=== PATIENT | female | born 1965 | race Caucasian/White ===

== ENCOUNTER 2020-07-18 14:53 | Observation (INO) ==
[2020-07-18] MEDS ORDERED: SODIUM CHLORIDE 0.9% 1000ML 1,000 ML IV SCH (15:45)
--- NOTE | 2020-07-18 15:48 | Emergency Department Note ---
Impression & Plan Left sided numbness, Hypertension, Slurred speech, Acute CVA (cerebrovascular accident) ED Provider Note NAME: PRANAY MARTINEZ AGE: 54 SEX: F : 1965 ARRIVES VIA: Walk-In INFORMANT: [Patient][] ED PROVIDER(S): [Dalton Lassiter MD] The patient was seen by me as she entered the room at 1538. CHIEF COMPLAINT: Stroke symptoms HISTORY OF PRESENT ILLNESS: The patient is a 54-year-old female who states that at 11 AM, 4 hours and 38 minutes ago, she noticed numbness to her left arm, left face and left leg. Mostly the left arm. She noticed her speech was thicker and slightly slurred. Her noticed that when she would speak, she would talk out of only the right side of her mouth. She has not really noticed weakness to the left arm or leg. She has not had a headache, nausea, chest pain or shortness of breath. She has no previous history of stroke. She is on no blood thinners. She has been in baseline health. REVIEW OF SYSTEMS: See HPI for pertinent positives and negatives. A total of ten systems were reviewed and were otherwise negative. PMHx/PSHx: See Below SOCIAL HISTORY: See Below. PHYSICAL EXAM: GENERAL: Patient is in no acute distress. HEENT: No acute trauma, normocephalic atraumatic, mucous membranes moist, no nasal congestion, no scleral icterus. NECK: No stridor, no adenopathy, no meningismus, trachea is midline. LUNGS: Clear to auscultation bilaterally, no wheeze, no rhonchi, breath sounds equal. HEART: Without murmurs gallops or rubs, regular rate and rhythm. ABDOMEN: Soft, nontender, bowel sounds positive, no hernias, no peritonitis. EXTREMITIES: No cyanosis or edema, full range of motion of all the joints without pain or difficulty, no signs for acute trauma. NEUROLOGIC: Oriented x 3. She has a slight speech slur. There is no facial droop however, when she speaks, the left side of her mouth does not move as much as the right. She has pronator drift on the left and a slight left arm drift. No cerebellar dysfunction with the upper extremities. She has some difficulty holding the left leg off the bed and there is cerebellar dysfunction with the left leg. SKIN: No rash, no jaundice, no diaphoresis. DIFFERENTIAL DIAGNOSIS: Infection, dehydration, metabolic abnormality, hypo/hyperglycemia, electrolyte disturbance, anemia, hypoxia, cardiac sources, intracerebral event, toxicologic issues, stroke, TIA, as well as other pathologies. EMERGENCY DEPARTMENT COURSE/PROCEDURES: ECG: Indication was stroke. ECG shows a normal sinus rhythm with a rate of 93. There is some nonspecific ST change. There is no ST elevation, no PVCs. The QTc is 457. Continuous Cardiac Monitoring: An order was placed for continuous cardiac monitoring. The monitor shows a rate of 93 with normal sinus rhythm. Critical Care Note: I have personally spent 53 minutes of critical care time in the direct management of this patient. This includes bedside care, interpretation of diagnostic studies, and testing, discussion with consultants, patient, and family members, and other required patient management activities. This 53 minutes is in excess of all separately billable procedures. MEDICAL DECISION MAKING: There is no leukocytosis or concerning anemia. There is a normal platelet count. No coagulopathy. No significant electrolyte abnormality or kidney fa ilure. No worrisome liver enzyme elevation. ECG shows a sinus rhythm, no acute ischemia. Cardiac enzyme testing x1 is not consistent with acute cardiac injury. Urinalysis does not show infection. Covid testing returned negative. Chest from did not show pneumonia or CHF. Brain CT showed no acute bleed or mass-effect. CT angio of the head and neck showed a stenosis to the right internal carotid artery, there was no occlusion to any of the arteries. Brain MRI does show a subacute stroke on the right. The patient was aggressively managed given her presentation. She was made a stroke alert. Unfortunately, she was not a candidate for TPA as she was out of the window for this intervention. Patient was given IV labetalol. A second dose of IV labetalol was given. She was given IV hydralazine. These medications were given because of her higher blood pressure. She was given rectal aspirin. The patient presents with left-sided weakness. She had some deficits on exam consistent with CVA. She was found to have a CVA by MRI. Hospitalization is warranted. She was seen by [place] neurology via telestroke. Patient is not in need of emergent transfer. Hospitalization for her stroke was recommended. I spoke to the patient and her family, I talked to case management. The on-call hospitalist was consulted. Past Med/Surg History Medical History Hypertension Social History Smoking Status: Current every day smoker Hx Alcohol Use: No Hx Substance Use: No Preferred Language: Kittitian Communication Ability: Effective Bilingual Loan Processor Required: No Beliefs That Will Affect Care: None Current Living Situation: Spouse Other Information That Helps Us Care for You: No Feels Safe at Home: Yes Safety Concerns: Feels Safe At This Time Assistive Devices: None Allergies Allergies Allergy/AdvReac Type Severity Reaction Status Date / Time No Known Allergies Allergy Unverified 07/18/20 16:33 Home Meds Home Medications Medication Instructions Recorded Confirmed No Known Home Medications 07/18/20 07/18/20 Results & Data (ED) Vital Signs Vital Signs - 24 hr 07/18/20 15:32 07/18/20 15:45 07/18/20 15:59 Temperature 37.2 C Temperature Source Temporal Artery Scan Pulse Rate 107 H 93 H Pulse Rate from SpO2 Sensor 93 H Respiratory Rate 20 16 Respiratory Effort / Characteristics Non-Labored Spontaneous Respiratory Depth Normal Respiratory Pattern Regular Blood Pressure 216/108 H 223/110 H Blood Pressure Mean 144 147 Pulse Oximetry 96 96 Oxygen Delivery Method Room Air Room Air Sepsis Recent Fever Within 48 Hours No Sepsis New/Unexplained Change in Mental Status N/A Sepsis Action Taken by Nursing No Action Required 07/18/20 16:01 07/18/20 16:02 07/18/20 16:06 Temperature Temperature Source Pulse Rate 94 H 96 H 98 H Pulse Rate from SpO2 Sensor 93 H 96 H 97 H Respiratory Rate 14 19 Respiratory Effort / Characteristics Respiratory Depth Respiratory Pattern Blood Pressure 221/122 H 221/118 H Blood Pressure Mean 155 152 Pulse Oximetry 97 98 96 Oxygen Delivery Method Sepsis Recent Fever Within 48 Hours Sepsis New/Unexplained Change in Mental Status Sepsis Action Taken by Nursing 07/18/20 16:07 07/18/20 16:10 07/18/20 16:18 Temperature Temperature Source Pulse Rate 95 H 85 82 Pulse Rate from SpO2 Sensor 95 H 85 81 Respiratory Rate 22 18 20 Respiratory Effort / Characteristics Respiratory Depth Respiratory Pattern Blood Pressure 214/117 H 224/119 H 213/113 H Blood Pressure Mean 149 154 146 Pulse Oximetry 95 97 95 Oxygen Delivery Method Sepsis Recent Fever Within 48 Hours Sepsis New/Unexplained Change in Mental Status Sepsis Action Taken by Nursing 07/18/20 16:19 07/18/20 16:20 07/18/20 16:30 Temperature Temperature Source Pulse Rate 88 81 87 Pulse Rate from SpO2 Sensor 87 80 87 Respiratory Rate 20 15 16 Respiratory Effort / Characteristics Respiratory Depth Respiratory Pattern Blood Pressure 198/114 H Blood Pressure Mean 142 Pulse Oximetry 98 97 98 Oxygen Delivery Method Sepsis Recent Fever Within 48 Hours Sepsis New/Unexplained Change in Mental Status Sepsis Action Taken by Nursing 07/18/20 16:40 07/18/20 16:41 Temperature Temperature Source Pulse Rate 82 83 Pulse Rate from SpO2 Sensor 81 83 Respiratory Rate 19 19 Respiratory Effort / Characteristics Respiratory Depth Respiratory Pattern Blood Pressure 206/120 H Blood Pressure Mean 148 Pulse Oximetry 98 96 Oxygen Delivery Method Sepsis Recent Fever Within 48 Hours Sepsis New/Unexplained Change in Mental Status Sepsis Action Taken by [facility] Medications Current Medication List: was personally reviewed by me Laboratory Data Attestation: I reviewed the patient's lab results. Result diagrams: 07/18/20 15:49 07/18/20 15:49 Lab Results 07/18/20 07/18/20 07/18/20 Range/Units 15:47 15:49 15:49 WBC 8.86 (4.8-10.8) K/uL RBC 4.98 (4.2-5.4) M/uL Hgb 15.7 (12.0-16.0) g/dL Hct 44.3 (37-47) % MCV 89.0 (80-100) fL MCH 31.5 (25-34) pg MCHC 35.4 (32-36) g/dL RDW Std Deviation 41.1 (36.4-46.3) fL RDW Coeff of Xin 12.8 (11.5-14.5) % Plt Count 188 (130-400) K/uL MPV 11.4 H (7.4-10.4) fL Immature Gran % (Auto) 0.3 % Neut % (Auto) 79.7 % Lymph % (Auto) 15.5 % [place] % (Auto) 4.0 % Eos % (Auto) 0.2 % Baso % (Auto) 0.3 % Neut # (Auto) 7.06 H (1.4-6.5) K/uL Lymph # (Auto) 1.37 (1.2-3.4) K/uL [place] # (Auto) 0.35 (0.11-0.59) K/uL Eos # (Auto) 0.02 (0-0.5) K/uL Baso # (Auto) 0.03 (0-0.2) K/uL Immature Gran # (Auto) 0.03 H (0.00-0.02) K/uL PT (9.0-12.0) Seconds INR (0.9-1.1) APTT (21.0-31.0) Seconds PTT Ratio Sodium (136-145) mmol/L Potassium (3.5-5.1) mmol/L Chloride (98-107) mmol/L Carbon Dioxide (21-32) mmol/L Anion Gap (3-11) BUN (7-18) mg/dl Creatinine (0.6-1.2) mg/dl Est Cr Clr Drug Dosing ml/min Est GFR ( Amer) ml/min Est GFR (Non-Af Amer) ml/min BUN/Creatinine Ratio (10-20) Glucose (70-99) mg/dl POC Glucose 134 H (70-99) mg/dl Calcium (8.5-10.1) mg/dl Magnesium (1.8-2.4) mg/dl Total Bilirubin (0.2-1) mg/dl AST (15-37) U/L ALT (12-78) U/L Alkaline Phosphatase (45-117) U/L Troponin I (0-0.045) ng/ml Total Protein (6.4-8.2) gm/dl Albumin (3.4-5.0) gm/dl Globulin (2.5-4.0) gm/dl Albumin/Globulin Ratio (0.9-2) Specimen Hemolysis Urine Color Urine Appearance (Clear) Urine pH (4.5-7.5) Ur Specific [place] (1.000-1.030) Urine Protein (Negative) Urine Glucose (UA) (Negative) Urine Ketones (Negative) Urine Blood (Negative) Urine Nitrite (Negative) Urine Bilirubin (Negative) Urine Urobilinogen (Negative) Ur Leukocyte Esterase (Negative) Urine WBC (Auto) (0-5) /hpf Urine RBC (Auto) (0-4) /hpf U Hyaline Cast (Auto) (0-5) /lpf U Epithel Cells (Auto) (0-5) /lpf Urine Bacteria (Auto) (Negative) COVID-19 Eval Order SARS-CoV-2 (PCR) (Negative) Blood Type A Positive Antibody Screen NEGATIVE 07/18/20 07/18/20 07/18/20 Range/Units 15:49 15:49 16:31 WBC (4.8-10.8) K/uL RBC (4.2-5.4) M/uL Hgb (12.0-16.0) g/dL Hct (37-47) % MCV (80-100) fL MCH (25-34) pg MCHC (32-36) g/dL RDW Std Deviation (36.4-46.3) fL RDW Coeff of Xin (11.5-14.5) % Plt Count (130-400) K/uL MPV (7.4-10.4) fL Immature Gran % (Auto) % Neut % (Auto) % Lymph % (Auto) % [place] % (Auto) % Eos % (Auto) % Baso % (Auto) % Neut # (Auto) (1.4-6.5) K/uL Lymph # (Auto) (1.2-3.4) K/uL [place] # (Auto) (0.11-0.59) K/uL Eos # (Auto) (0-0.5) K/uL Baso # (Auto) (0-0.2) K/uL Immature Gran # (Auto) (0.00-0.02) K/uL PT 9.8 (9.0-12.0) Seconds INR 1.0 (0.9-1.1) APTT 23.1 (21.0-31.0) Seconds PTT Ratio 0.9 Sodium 140 (136-145) mmol/L Potassium 4.0 (3.5-5.1) mmol/L Chloride 109 H (98-107) mmol/L Carbon Dioxide 24 (21-32) mmol/L Anion Gap 7.0 (3-11) BUN 9 (7-18) mg/dl Creatinine 0.74 (0.6-1.2) mg/dl Est Cr Clr Drug Dosing 104.4 ml/min Est GFR ( Amer) 107.2 ml/min Est GFR (Non-Af Amer) 92.5 ml/min BUN/Creatinine Ratio 12.2 (10-20) Glucose 131 H (70-99) mg/dl POC Glucose (70-99) mg/dl Calcium 9.6 (8.5-10.1) mg/dl Magnesium 2.3 (1.8-2.4) mg/dl Total Bilirubin 0.3 (0.2-1) mg/dl AST 21 (15-37) U/L ALT 33 (12-78) U/L Alkaline Phosphatase 105 (45-117) U/L Troponin I < 0.015 (0-0.045) ng/ml Total Protein 9.0 H (6.4-8.2) gm/dl Albumin 4.3 (3.4-5.0) gm/dl Globulin 4.7 H (2.5-4.0) gm/dl Albumin/Globulin Ratio 0.9 (0.9-2) Specimen Hemolysis Urine Color Yellow Urine Appearance Clear (Clear) Urine pH 7.5 (4.5-7.5) Ur Specific [place] 1.033 H (1.000-1.030) Urine Protein Negative (Negative) Urine Glucose (UA) Negative (Negative) Urine Ketones Negative (Negative) Urine Blood 1+ H (Negative) Urine Nitrite Negative (Negative) Urine Bilirubin Negative (Negative) Urine Urobilinogen Negative (Negative) Ur Leukocyte Esterase Negative (Negative) Urine WBC (Auto) 1-5 (0-5) /hpf Urine RBC (Auto) 0-4 (0-4) /hpf U Hyaline Cast (Auto) 0 (0-5) /lpf U Epithel Cells (Auto) 10-20 H (0-5) /lpf Urine Bacteria (Auto) Negative (Negative) COVID-19 Eval Order SARS-CoV-2 (PCR) (Negative) Blood Type Antibody Screen 07/18/20 07/18/20 Range/Units 16:45 16:45 WBC (4.8-10.8) K/uL RBC (4.2-5.4) M/uL Hgb (12.0-16.0) g/dL Hct (37-47) % MCV (80-100) fL MCH (25-34) pg MCHC (32-36) g/dL RDW Std Deviation (36.4-46.3) fL RDW Coeff of Xin (11.5-14.5) % Plt Count (130-400) K/uL MPV (7.4-10.4) fL Immature Gran % (Auto) % Neut % (Auto) % Lymph % (Auto) % [place] % (Auto) % Eos % (Auto) % Baso % (Auto) % Neut # (Auto) (1.4-6.5) K/uL Lymph # (Auto) (1.2-3.4) K/uL [place] # (Auto) (0.11-0.59) K/uL Eos # (Auto) (0-0.5) K/uL Baso # (Auto) (0-0.2) K/uL Immature Gran # (Auto) (0.00-0.02) K/uL PT (9.0-12.0) Seconds INR (0.9-1.1) APTT (21.0-31.0) Seconds PTT Ratio Sodium (136-145) mmol/L Potassium (3.5-5.1) mmol/L Chloride (98-107) mmol/L Carbon Dioxide (21-32) mmol/L Anion Gap (3-11) BUN (7-18) mg/dl Creatinine (0.6-1.2) mg/dl Est Cr Clr Drug Dosing ml/min Est GFR ( Amer) ml/min Est GFR (Non-Af Amer) ml/min BUN/Creatinine Ratio (10-20) Glucose (70-99) mg/dl POC Glucose (70-99) mg/dl Calcium (8.5-10.1) mg/dl Magnesium (1.8-2.4) mg/dl Total Bilirubin (0.2-1) mg/dl AST (15-37) U/L ALT (12-78) U/L Alkaline Phosphatase (45-117) U/L Troponin I (0-0.045) ng/ml Total Protein (6.4-8.2) gm/dl Albumin (3.4-5.0) gm/dl Globulin (2.5-4.0) gm/dl Albumin/Globulin Ratio (0.9-2) Specimen Hemolysis Urine Color Urine Appearance (Clear) Urine pH (4.5-7.5) Ur Specific [place] (1.000-1.030) Urine Protein (Negative) Urine Glucose (UA) (Negative) Urine Ketones (Negative) Urine Blood (Negative) Urine Nitrite (Negative) Urine Bilirubin (Negative) Urine Urobilinogen (Negative) Ur Leukocyte Esterase (Negative) Urine WBC (Auto) (0-5) /hpf Urine RBC (Auto) (0-4) /hpf U Hyaline Cast (Auto) (0-5) /lpf U Epithel Cells (Auto) (0-5) /lpf Urine Bacteria (Auto) (Negative) COVID-19 Eval Order Covid19 at [facility] SARS-CoV-2 (PCR) NEGATIVE (Negative) Blood Type Antibody Screen Administered Medications Clopidogrel Bisulfate (Clopidogrel Bisulfate 75 Mg Tab) 75 mg PO QAM TIMO Stop: 08/17/20 19:09 Last Admin: 07/18/20 22:15 Dose: 75 mg Documented by: [id number] Sodium Chloride (Nss 1000ml) 1,000 mls @ 100 mls/hr IV .Q10H TIMO Stop: 08/17/20 19:09 Last Admin: 07/18/20 22:15 Dose: 100 mls/hr Documented by: [id number] Nicotine (Nicotine 21 Mg/24 Hr Tdsy) 21 mg TD QAM TIMO Stop: 08/17/20 19:09 Last Admin: 07/18/20 22:15 Dose: 21 mg Documented by: [id number] Discontinued Medications Aspirin (Aspirin 600 Mg Supp) 600 mg TN NOW STA Stop: 07/18/20 16:26 Last Admin: 07/18/20 16:45 Dose: 600 mg Documented by: [id number] Hydralazine HCl (Hydralazine Hcl 20 Mg/Ml Vial) 10 mg IV NOW STA Stop: 07/18/20 16:53 Last Admin: 07/18/20 17:45 Dose: 10 mg Documented by: [id number] Sodium Chloride (Nss 1000ml) 1,000 mls @ 50 mls/hr IV .Q20H TIMO Stop: 08/17/20 15:44 Last Admin: 07/18/20 16:25 Dose: 50 mls/hr Documented by: [id number] Ioversol (Optiray 350 500ml) 120 ml IV ONCE ONE Stop: 07/18/20 15:54 Last Admin: 07/18/20 15:53 Dose: 120 ml Documented by: [id number] Labetalol HCl (Labetalol Hcl Iv 5 Mg/Ml 20ml) 10 mg IV NOW STA Stop: 07/18/20 16:03 Last Admin: 07/18/20 16:05 Dose: 10 mg Documented by: [id number] Cosigned by: [id number] Labetalol HCl (Labetalol Hcl Iv 5 Mg/Ml 20ml) 10 mg IV NOW STA Stop: 07/18/20 16:22 Last Admin: 07/18/20 16:27 Dose: 10 mg Documented by: [id number] Cosigned by: [id number] Imaging Data Radiologist's Impression: Head CT 07/18/20 15:43 CT head/brain wo con CLINICAL HISTORY: Acute stroke like symptoms COMPARISON STUDY: No previous studies for comparison. TECHNIQUE: Axial CT of the brain is performed from the vertex to the skull base. IV contrast was not administered for this examination. A dose lowering technique was utilized adhering to the principles of ALARA. CT DOSE: FINDINGS: No intra or extra-axial mass lesions are visualized. There is no CT evidence of acute cortical infarction. There is no evidence of midline shift. There is no acute hemorrhage. No calvarial fractures are visualized. There are moderate white matter hypodensities likely on a small vessel basis. This could represent a demyelinating process, or age advanced small vessel ischemic disease. There is no evidence of pathologic ventricular dilatation. There is no evidence of acute sinusitis IMPRESSION: 1. No acute intracranial findings 2. Moderate nonspecific white matter disease. This could represent age advanced small vessel ischemic disease, or a demyelinating process. Clinical correlation advocated. ACT 112: Negative or not required by law. Electronically signed by: Randy Farias M.D. 07/18/2020 3:59 PM Head CTA 07/18/20 15:43 CT ANGIOGRAM OF THE BRAIN CLINICAL HISTORY: Strokelike symptoms. Left upper extremity tingling and numbne ss. COMPARISON STUDY: Unenhanced CT of the brain performed concurrently on 07/18/2020. TECHNIQUE: Following the IV administration of 120 cc of Optiray 350, CT angiogram of the brain was performed from the skull base to the vertex. Images are reviewed in the axial, sagittal, and coronal planes. 3-D MIPS images are created and assessed. IV contrast was administered without complication. A dose lowering technique was utilized adhering to the principles of ALARA. CT DOSE: 1113.38 mGy.cm FINDINGS: Brain parenchyma: There are foci of patchy low-attenuation within the s ubcortical and periventricular white matter. There is no hemorrhage, mass effect, or evidence of acute territorial ischemia by CT criteria. There is no evidence of enhancing mass lesion on the angiogram phase images. No extra-axial fluid collection is seen. Khalil-white matter differentiation is preserved. Ventricles, sulci, and cisterns: Normal in configuration. CT angiogram of the brain: There is atherosclerotic calcification of the cavernous carotid arteries. The internal carotid arteries are widely patent, as are the anterior and middle cerebral arteries. The vertebrobasilar system and posterior cerebral arteries are widely patent. The left vertebral artery is dominant. There is no aneurysm, high-grade stenosis, or focal vessel cutoff identified throughout the intracranial circulation. Dural sinuses: Clear as visualized. Orbits: The bony orbits are intact. The orbital contents are normal as visualized. Sinuses and mastoids: The visualized paranasal sinuses are clear. The mastoid air cells are well pneumatized. Dentition and soft tissues: There are large periapical lucencies seen involving several maxillary teeth. A 2.6 x 1.6 cm benign-appearing cystic structure is present within the right maxilla on image #8. A 10 mm right peritonsillar fluid collection is partially imaged. Calvarium: Unremarkable. IMPRESSION: 1. There is evidence of hemorrhage, mass effect, or acute territorial ischemia by CT criteria noting angiographic phase technique. 2. Unremarkable CT angiogram of the brain. 3. There is nonspecific subcortical and periventricular white matter abnormality. This could represent age advanced microangiopathic change or could also be seen in the setting of a demyelinating process such as multiple sclerosis. Clinical correlation will be essential. 4. There is a 10 mm right peritonsillar fluid collection. This is of indeterminate significance, and a small tonsillar abscess is not excluded. Clinical correlation will be essential. 5. There are numerous periapical lucencies identified involving the maxillary teeth. Additionally, there is a large benign-appearing cystic structure within the right maxilla. Nonemergent follow-up with dentistry is recommended. ACT 112: Positive. There are findings on this exam that require communication between the performing entity and the patient following Patient Test Result Information Act ([place] Act 112) guidelines. Electronically signed by: Dalton Moura M.D. 07/18/2020 4:12 PM Neck CTA 07/18/20 15:43 CT angio neck with con CLINICAL HISTORY: stroke LEFT ARM NUMBNESS AND TINGLING COMPARISON STUDY: No previous studies for comparison. TECHNIQUE: CT angiography was performed from the aortic arch to the skull base. MIP imaging was performed. The patient was scanned in a dynamic helical fashion during intravenous administration of 120 cc of Optiray. A dose lowering technique was utilized adhering to the principles of ALARA. CT DOSE: Technique: CT angiogram of the carotid and vertebral arteries was obtained using intravenous contrast and 3-D reconstruction. NASCET criteria was utilized. Findings: There is upper lobe pulmonary emphysema. There is a multinodular thyroid goiter. There are extensive atheromatous changes within the right carotid bulb. There is an 80% diameter stenosis of the proximal right internal carotid artery. There is no evidence of carotid dissection. Atheromatous changes are present within the cavernous carotids without evidence of a hemodynamically significant stenosis. Moderate atheromatous changes are present within the left carotid bulb. This results in a nonhemodynamically significant 25% left internal carotid artery origin stenosis. There is no evidence of hemodynamically significant vertebral stenosis. There is no evidence of vertebral dissection. IMPRESSION: 1. 80% diameter stenosis in the proximal right internal carotid artery. 2. No evidence of hemodynamically significant left internal carotid artery stenosis. 3. No evidence of vertebral artery stenosis or dissection. 4. Multinodular thyroid goiter 5. Indeterminate 1 cm right tonsillar hypodensity. Clinical correlation and follow-up recommended. ACT 112: Negative or not required by law. Electronically signed by: Randy Farias M.D. 07/18/2020 4:16 PM Chest X-Ray 07/18/20 15:45 XR chest 1V portable CLINICAL HISTORY: Stroke Like Symptoms COMPARISON STUDY: No previous studies for comparison. FINDINGS: The heart is borderline enlarged. There is mild interstitial prominence without evidence of overt failure. There is no focal pulmonary consolidation. There are no pleural effusions.[There is paratracheal soft tissue prominence, consistent with the patient's known thyroid goiter. IMPRESSION: 1. Mild vascular/interstitial prominence without evidence of overt failure 2. No evidence of focal pulmonary consolidation 3. Paratracheal soft tissue prominence, consistent with the patient's known thyroid goiter. ACT 112: Negative or not required by law. Electronically signed by: Randy Farias M.D. 07/18/2020 6:13 PM Brain MRI 07/18/20 16:26 MRI OF THE BRAIN WITHOUT CONTRAST CLINICAL HISTORY: Left-sided numbness. Possible acute stroke. COMPARISON STUDY: Noncontrast head CT dated 07/18/2020 FINDINGS: Sagittal T1, axial diffusion, proton density and T2 weighted axial, coronal FLAIR, and axial T1-weighted images were acquired. No intra or extra-axial mass lesions are visualized There is a 9 mm focus of restricted water diffusion within the deep white matter of the right parietal lobe indicative of an acute/subacute infarct. There is no evidence of ventricular dilatation. Proton density T2-weighted and FLAIR images reveal moderately extensive foci of increased T2 signal within the white matter, likely on an age advanced small vessel basis. There is an old presumed lacunar infarct within the left garrison. T here are deep white matter chronic right frontal infarcts. There are no abnormal flow voids. There is a right maxillary sinus inflammatory polyp/retention cyst. IMPRESSION: 1. 9 mm focus of restricted water diffusion within the deep white matter of the right parietal lobe indicative of acute/subacute infarct 2. Moderately extensive white matter disease, likely secondary to age advanced small vessel ischemic disease. 3. Presumed old lacunar infarcts within the left garrison and deep white matter of the right frontal lobe.. ACT 112: Negative or not required by law. Electronically signed by: Randy Farias M.D. 07/18/2020 5:30 PM Discharge Plan Visit Data Chief Complaint: Neuro Symptoms/Deficit Stated Complaint: LFT SIDE FEELS NUMB,VOICE IS HOARSE ED Provider: Dalton Lassiter Discharge Problem: Left sided numbness, Hypertension, Slurred speech, Acute CVA (cerebrovascular accident) Patient Disposition: Admitted As Inpatient Condition: Fair Discharge Instructions Interventions: ED Discharge Assessment Last Done: 07/18/20 18:36 Discharge Problem: Hypertension Qualifiers: Hypertension type: unspecified Qualified Code(s): I10 - Essential (primary) hypertension
[2020-07-18] MEDS ORDERED: OPTIRAY 350 500ml IV ONE (15:53)
[2020-07-18 15:57] LABS: Basophils # (auto) 0.03 K/uL (0-0.2); Basophils % (auto) 0.3 %; Eosinophils # (auto) 0.02 K/uL (0-0.5); Eosinophils % (auto) 0.2 %; Hematocrit (blood only) 44.3 % (37-47); Hemoglobin 15.7 g/dL (12.0-16.0); Immature Granulocytes # (auto) 0.03 K/uL (0.00-0.02); Immature Granulocytes % (auto) 0.3 %; Lymphocytes # (auto) 1.37 K/uL (1.2-3.4); Lymphocytes % (auto) 15.5 %; Mean Corpuscular Hemoglobin 31.5 pg (25-34); Mean Corpuscular Hgb Conc 35.4 g/dL (32-36); Mean Platelet Volume 11.4 fL (7.4-10.4); Monocytes # (auto) 0.35 K/uL (0.11-0.59); Neutrophils # (auto) 7.06 K/uL (1.4-6.5); Neutrophils % (auto) 79.7 %; Platelet Count 188 K/uL (130-400); RDW Coefficient of Variation 12.8 % (11.5-14.5); RDW Standard Deviation 41.1 fL (36.4-46.3); Red Blood Count 4.98 M/uL (4.2-5.4); White Blood Count 8.86 K/uL (4.8-10.8)
--- NOTE | 2020-07-18 16:01 | CT Scan Report ---
CT head/brain wo con CLINICAL HISTORY: Acute stroke like symptoms COMPARISON STUDY: No previous studies for comparison. TECHNIQUE: Axial CT of the brain is performed from the vertex to the skull base. IV contrast was not administered for this examination. A dose lowering technique was utilized adhering to the principles of ALARA. CT DOSE: FINDINGS: No intra or extra-axial mass lesions are visualized. There is no CT evidence of acute cortical infarc tion. There is no evidence of midline shift. There is no acute hemorrhage. No calvarial fractures ar e visualized. There are moderate white matter hypodensities likely on a small vessel basis. This could represent a demyelinating process, or age advanced small vessel ischemic disease. There is no evidence of pathologic ventricular dilatation. There is no evidence of acute sinusitis IMPRESSION: 1. No acute intracranial findings 2. Moderate nonspecific white matter disease. This could represent age advanced small vessel ischemic disease, or a demyelinating process. Clinical correlation advocated. ACT 112: Negative or not required by law. Electronically signed by: Randy Farias M.D. 07/18/2020 3:59 PM
[2020-07-18] MEDS ORDERED: LABETALOL HCL IV 5 MG/ML 20ML IV STA ×2 (16:02→16:21)
--- NOTE | 2020-07-18 16:13 | CT Scan Report ---
CT ANGIOGRAM OF THE BRAIN CLINICAL HISTORY: Strokelike symptoms. Left upper extremity tingling and numbness. COMPARISON STUDY: Unenhanced CT of the brain performed concurrently on 07/18/2020. TECHNIQUE: Following the IV administration of 120 cc of Optiray 350, CT angiogram of the brain was pe rformed from the skull base to the vertex. Images are reviewed in the axial, sagittal, and coronal pl anes. 3-D MIPS images are created and assessed. IV contrast was administered without complication. A dose lowering technique was utilized adhering to the principles of ALARA. CT DOSE: 1113.38 mGy.cm FINDINGS: Brain parenchyma: There are foci of patchy low-attenuation within the subcortical and periventricular white matter. There is no hemorrhage, mass effect, or evidence of acute territorial ischemia by CT c riteria. There is no evidence of enhancing mass lesion on the angiogram phase images. No extra-axial fluid collection is seen. Khalil-white matter differentiation is preserved. Ventricles, sulci, and cisterns: Normal in configuration. CT angiogram of the brain: There is atherosclerotic calcification of the cavernous carotid arteries. The internal carotid arteries are widely patent, as are the anterior and middle cerebral arteries. Th e vertebrobasilar system and posterior cerebral arteries are widely patent. The left vertebral artery is dominant. There is no aneurysm, high-grade stenosis, or focal vessel cutoff identified throughout the intracranial circulation. Dural sinuses: Clear as visualized. Orbits: The bony orbits are intact. The orbital contents are normal as visualized. Sinuses and mastoids: The visualized paranasal sinuses are clear. The mastoid air cells are well pneu matized. Dentition and soft tissues: There are large periapical lucencies seen involving several maxillary sami th. A 2.6 x 1.6 cm benign-appearing cystic structure is present within the right maxilla on image #8. A 10 mm right peritonsillar fluid collection is partially imaged. Calvarium: Unremarkable. IMPRESSION: 1. There is evidence of hemorrhage, mass effect, or acute territorial ischemia by CT criteria noting angiographic phase technique. 2. Unremarkable CT angiogram of the brain. 3. There is nonspecific subcortical and periventricular white matter abnormality. This could represen t age advanced microangiopathic change or could also be seen in the setting of a demyelinating proces s such as multiple sclerosis. Clinical correlation will be essential. 4. There is a 10 mm right peritonsillar fluid collection. This is of indeterminate significance, and a small tonsillar abscess is not excluded. Clinical correlation will be essential. 5. There are numerous periapical lucencies identified involving the maxillary teeth. Additionally, th ere is a large benign-appearing cystic structure within the right maxilla. Nonemergent follow-up with dentistry is recommended. ACT 112: Positive. There are findings on this exam that require communication between the performing entity and the patient following Patient Test Result Information Act ([place] Act 112) guidelines. Electronically signed by: Dalton Moura M.D. 07/18/2020 4:12 PM
--- NOTE | 2020-07-18 16:17 | CT Scan Report ---
CT angio neck with con CLINICAL HISTORY: stroke LEFT ARM NUMBNESS AND TINGLING COMPARISON STUDY: No previous studies for comparison. TECHNIQUE: CT angiography was performed from the aortic arch to the skull base. MIP imaging was perfo rmed. The patient was scanned in a dynamic helical fashion during intravenous administration of 120 c c of Optiray. A dose lowering technique was utilized adhering to the principles of ALARA. CT DOSE: Technique: CT angiogram of the carotid and vertebral arteries was obtained using intravenous contrast and 3-D reconstruction. NASCET criteria was utilized. Findings: There is upper lobe pulmonary emphysema. There is a multinodular thyroid goiter. There are extensive atheromatous changes within the right carotid bulb. There is an 80% diameter sten osis of the proximal right internal carotid artery. There is no evidence of carotid dissection. Ather omatous changes are present within the cavernous carotids without evidence of a hemodynamically signi ficant stenosis. Moderate atheromatous changes are present within the left carotid bulb. This results in a nonhemodyna mically significant 25% left internal carotid artery origin stenosis. There is no evidence of hemodynamically significant vertebral stenosis. There is no evidence of verte bral dissection. IMPRESSION: 1. 80% diameter stenosis in the proximal right internal carotid artery. 2. No evidence of hemodynamically significant left internal carotid artery stenosis. 3. No evidence of vertebral artery stenosis or dissection. 4. Multinodular thyroid goiter 5. Indeterminate 1 cm right tonsillar hypodensity. Clinical correlation and follow-up recommended. ACT 112: Negative or not required by law. Electronically signed by: Randy Farias M.D. 07/18/2020 4:16 PM
[2020-07-18 16:19] LABS: Partial Thromboplastin Ratio 0.9; Partial Thromboplastin Time 23.1 Seconds (21.0-31.0); Prothrombin Time 9.8 Seconds (9.0-12.0)
[2020-07-18] MEDS ORDERED: ASPIRIN 600 MG SUPP PR STA (16:25)
--- NOTE | 2020-07-18 16:26 | Electrocardiogram Report ---
Test Reason : Blood Pressure : / mmHG Vent. Rate : 093 BPM Atrial Rate : 093 BPM P-R Int : 164 ms QRS Dur : 096 ms QT Int : 368 ms P-R-T Axes : 060 067 021 degrees QTc Int : 457 ms Normal sinus rhythm Possible Left atrial enlargement Borderline ECG No previous ECGs available Confirmed by Chuckie Izquierdo ([id number]) on 07/18/2020 4:26:12 PM Referred By: Confirmed By:Chuckie Izquierdo
[2020-07-18 16:31] LABS: Alanine Aminotransferase 33 U/L (12-78); Albumin Globulin Ratio 0.9 (0.9-2); Albumin Level 4.3 gm/dl (3.4-5.0); Alkaline Phosphatase 105 U/L (45-117); Aspartate Aminotransferase 21 U/L (15-37); BUN Creatinine Ratio 12.2 (10-20); Bilirubin,Total 0.3 mg/dl (0.2-1); Blood Urea Nitrogen 9 mg/dl (7-18); Calcium 9.6 mg/dl (8.5-10.1); Carbon Dioxide 24 mmol/L (21-32); Chloride 109 mmol/L (98-107); Creatinine Clr Calc Pharmacy 104.4 ml/min; Est GFR (African American) 107.2 ml/min; Est GFR (Non-African American) 92.5 ml/min; Globulin 4.7 gm/dl (2.5-4.0); Glucose 131 mg/dl (70-99); Magnesium 2.3 mg/dl (1.8-2.4); Sodium 140 mmol/L (136-145); Troponin I < 0.015 ng/ml (0-0.045)
[2020-07-18 16:47] LABS: Appearance Urine Clear (Clear); Bacteria Urine Automated Negative (Negative); Bilirubin Urine Negative (Negative); Blood Urine 1+ (Negative); Cast Urine Automated 0 /lpf (0-5); Color Urine Yellow; Glucose Urine UA Negative (Negative); Ketones Urine Negative (Negative); Leukocyte Esterase Urine Negative (Negative); Nitrite Urine Negative (Negative); Protein Urine Negative (Negative); RBC Urine Automated 0-4 /hpf (0-4); Specific Gravity Urine 1.033 (1.000-1.030); Urobilinogen Urine Negative (Negative); pH Urine 7.5 (4.5-7.5)
[2020-07-18] MEDS ORDERED: hydrALAZINE HCL 20 MG/ML VIAL IV STA (16:52)
--- NOTE | 2020-07-18 17:31 | Magnetic Resonance Report ---
MRI OF THE BRAIN WITHOUT CONTRAST CLINICAL HISTORY: Left-sided numbness. Possible acute stroke. COMPARISON STUDY: Noncontrast head CT dated 07/18/2020 FINDINGS: Sagittal T1, axial diffusion, proton density and T2 weighted axial, coronal FLAIR, and axial T1-weigh manjit images were acquired. No intra or extra-axial mass lesions are visualized There is a 9 mm focus of restricted water diffusion within the deep white matter of the right parieta l lobe indicative of an acute/subacute infarct. There is no evidence of ventricular dilatation. Proton density T2-weighted and FLAIR images reveal moderately extensive foci of increased T2 signal w ithin the white matter, likely on an age advanced small vessel basis. There is an old presumed lacuna r infarct within the left garrison. There are deep white matter chronic right frontal infarcts. There are no abnormal flow voids. There is a right maxillary sinus inflammatory polyp/retention cyst. IMPRESSION: 1. 9 mm focus of restricted water diffusion within the deep white matter of the right parietal lobe i ndicative of acute/subacute infarct 2. Moderately extensive white matter disease, likely secondary to age advanced small vessel ischemic disease. 3. Presumed old lacunar infarcts within the left garrison and deep white matter of the right frontal lobe .. ACT 112: Negative or not required by law. Electronically signed by: Randy Farias M.D. 07/18/2020 5:30 PM
--- NOTE | 2020-07-18 18:05 | History & Physical Report ---
Date of Service July 18, 2020 Assessment & Plan (1) CVA (cerebral vascular accident): Patient with a new right parietal CVA, evidence of older left frontal and garrison infarcts Out of window on presentation for TPA Placed in monitored observation Patient was given rectal aspirin, can continue along with Plavix 75 mg daily Start of 40 mg of atorvastatin, check fasting lipids check Hgba1c Check 2D echo Continue neurochecks as ordered PT/OT Bedside speech eval for diet release, will ask speech to evaluate in a.m. Ask neurology to evaluate for further recommendations (2) Hypertension: Permissive hypertension for the next 12 hours Amlodipine 5 mg p.o. daily ordered for the morning (3) Carotid stenosis: Aspirin, Plavix as noted above statin as noted above Consider vascular consultation for possible surgical intervention (4) Tobacco abuse: Briefly counseled on smoking cessation Patient requesting nicotine patch Will follow up with primary care provider after discharge to discuss Chantix History of Present Illness Chief Complaint: L sided numbness Primary Care Provider: NO PCP This is a 54-year-old female denies any past medical history that presents today complaining of left-sided numbness and weakness. Patient is pleasant good historian. Patient states that she was doing fine so she woke up this morning. She noted some numbness in her left upper extremity radiating down to her hand. There is a little bit of weakness as well. She is left-hand dominant. This morning progressed, she noted some similar symptoms in her upper leg down to her knee with some accompanied weakness. She denies any difficulty with walking. However, she became much more concerned when she started to have some dysarthria. She denies any expressive aphasia. She called her significant other who also noted the slurred speech and brought her to the emergency room for further evaluation. In the ER, she was found to be extremely hypertensive with a blood pressure over 200. She presented to the hospital more than 4 and half hours after symptoms had started and was therefore not a candidate for TPA. Stroke work-up did reveal a left parietal CVA along with some older lacunar and garrison infarcts. Patient tells me that her symptoms are almost completely resolved with just some residual numbness in her left arm. She denies any issues such as headache, fever, recent illness, chest pain, palpitations, abdominal pain, or lower extremity edema. Of note, she has not seen a physician in many years. She smokes about a pack a day since her teenage years. She is a nondrinker. Allergies Allergy/AdvReac Type Severity Reaction Status Date / Time No Known Allergies Allergy Unverified 07/18/20 16:33 Home Medications Medication Instructions Recorded Confirmed Type No Known Home Medications 07/18/20 07/18/20 History Past Med/Surg History Social History Smoking Status: Current every day smoker Feels Safe at Home: Yes Review of Systems Constitutional: no fever, no chills, no weakness and no anorexia Eyes: no blind spots, no photophobia, not seeing flashes and no worsening vision Ear, Nose, Mouth, Throat: as per Subjective / HPI Respiratory: + cough; no chest congestion, no dyspnea, no dyspnea on exertion, no pain on inspiration, no pain with cough, no stopping breathing during sleep and no sputum production Cardiovascular: no chest pain, no radiating jaw, neck or arm pain, no dyspnea, no dyspnea on exertion, no orthopnea, no palpitations and no lightheadedness Gastrointestinal: no abdominal pain, no nausea, no vomiting, no constipation and no diarrhea/loose stools Genitourinary: no dysuria, no difficulty urinating, no urinary hesitancy and no urinary urgency Musculoskeletal: + muscle weakness; no back pain, no neck pain, no radicular pain, no joint pain and no deformity Integumentary: no rash and no lesions Neurologic: + tingling, + numbness, + paresthesia and + abnormal speech; no unsteadiness, no generalized weakness, no lack of coordination, no tremor(s), no abnormal movements, no seizure-like activity, no headache(s) and no confusion Psychiatric: as per Subjective / HPI Endocrine: as per Subjective / HPI Physical Exam Constitutional: cooperative and comfortable; no acute distress Neck: trachea midline, no thyromegaly Respiratory: normal respiratory effort, lungs clear to auscultation Cardiovascular: Rate/Rhythm: regular rate and regular rhythm Heart Sounds: no murmur Vessels: + carotid bruit (? faint on R side); no JVD Extremities: + edema Gastrointestinal (Abdomen): normal bowel sounds, soft, nontender, no hepatosplenomegaly Musculoskeletal: no cyanosis or clubbing, extremities motor strength 5/5 Neurologic: patellar DTR's 2+ bilat, sensation intact and PERRL, EOMI, accommodation nl, no face palsy, no dysarthria Psychiatric: A+Ox3, euthymic affect Results & Data Results & Data ([facility]) Vital Signs (Past 12 Hours) Vital Signs Temp Pulse Resp BP Pulse Ox 07/18/20 16:41 83 19 206/120 H 96 07/18/20 16:40 82 19 98 07/18/20 16:30 87 16 98 07/18/20 16:20 81 15 198/114 H 97 07/18/20 16:19 88 20 98 07/18/20 16:18 82 20 213/113 H 95 07/18/20 16:10 85 18 224/119 H 97 07/18/20 16:07 95 H 22 214/117 H 95 07/18/20 16:06 98 H 221/118 H 96 07/18/20 16:02 96 H 19 221/122 H 98 07/18/20 16:01 94 H 14 97 07/18/20 15:59 93 H 16 223/110 H 96 07/18/20 15:32 37.2 C 107 H 20 216/108 H 96 Diagnostic Findings MRI OF THE BRAIN WITHOUT CONTRAST CLINICAL HISTORY: Left-sided numbness. Possible acute stroke. COMPARISON STUDY: Noncontrast head CT dated 07/18/2020 FINDINGS: Sagittal T1, axial diffusion, proton density and T2 weighted axial, coronal FLAIR, and axial T1-weighted images were acquired. No intra or extra-axial mass lesions are visualized There is a 9 mm focus of restricted water diffusion within the deep white matter of the right parietal lobe indicative of an acute/subacute infarct. There is no evidence of ventricular dilatation. Proton density T2-weighted and FLAIR images reveal moderately extensive foci of increased T2 signal within the white matter, likely on an age advanced small vessel basis. There is an old presumed lacunar infarct within the left garrison. There are deep white matter chronic right frontal infarcts. There are no abnormal flow voids. There is a right maxillary sinus inflammatory polyp/retention cyst. IMPRESSION: 1. 9 mm focus of restricted water diffusion within the deep white matter of the right parietal lobe indicative of acute/subacute infarct 2. Moderately extensive white matter disease, likely secondary to age advanced small vessel ischemic disease. 3. Presumed old lacunar infarcts within the left garrison and deep white matter of the right frontal lobe.. PG Care Time/CCT Total # of Minutes Spent Total Time Spent with Patient: Total time spent is greater than 50% in coordination of care (as documented) at patient's floor/unit and/or counseling patient: Coding Level of Care Code 93262 OBS Care - Level 3 Diagnoses CVA (cerebral vascular accident) I63.9 Hypertension I10 Carotid stenosis I65.29 Tobacco abuse Z72.0
--- NOTE | 2020-07-18 18:14 | XRay Report ---
XR chest 1V portable CLINICAL HISTORY: Stroke Like Symptoms COMPARISON STUDY: No previous studies for comparison. FINDINGS: The heart is borderline enlarged. There is mild interstitial prominence without evidence of overt failure. There is no focal pulmonary consolidation. There are no pleural effusions.[There is p aratracheal soft tissue prominence, consistent with the patient's known thyroid goiter. IMPRESSION: 1. Mild vascular/interstitial prominence without evidence of overt failure 2. No evidence of focal pulmonary consolidation 3. Paratracheal soft tissue prominence, consistent with the patient's known thyroid goiter. ACT 112: Negative or not required by law. Electronically signed by: Randy Farias M.D. 07/18/2020 6:13 PM
[2020-07-18] MEDS ORDERED: ACETAMINOPHEN 325 MG TAB PO PRN (19:10)
[2020-07-18] MEDS ORDERED: PHARMACIST DISCHARGE MED REC CONSULT PRN (19:10)
[2020-07-18] MEDS ORDERED: ONDANSETRON INJ 2 MG/ML 2 ML VIAL IV PRN (19:10)
[2020-07-18] MEDS: NICOTINE 21 MG/24 HR TDSY TD SCH (22:15)
[2020-07-18] MEDS: SODIUM CHLORIDE 0.9% 1000ML 1,000 ML IV SCH (22:15)
[2020-07-18] MEDS: CLOPIDOGREL BISULFATE 75 MG TAB PO SCH (22:15)
[2020-07-19 06:44] LABS: Basophils # (auto) 0.03 K/uL (0-0.2); Basophils % (auto) 0.4 %; Eosinophils # (auto) 0.08 K/uL (0-0.5); Eosinophils % (auto) 1.1 %; Hematocrit (blood only) 40.3 % (37-47); Hemoglobin 13.8 g/dL (12.0-16.0); Immature Granulocytes # (auto) 0.02 K/uL (0.00-0.02); Immature Granulocytes % (auto) 0.3 %; Lymphocytes # (auto) 1.83 K/uL (1.2-3.4); Lymphocytes % (auto) 25.5 %; Mean Corpuscular Hemoglobin 30.5 pg (25-34); Mean Corpuscular Hgb Conc 34.2 g/dL (32-36); Mean Platelet Volume 11.5 fL (7.4-10.4); Monocytes # (auto) 0.46 K/uL (0.11-0.59); Monocytes % (auto) 6.4 %; Neutrophils # (auto) 4.76 K/uL (1.4-6.5); Neutrophils % (auto) 66.3 %; Platelet Count 172 K/uL (130-400); RDW Coefficient of Variation 13.3 % (11.5-14.5); RDW Standard Deviation 43.3 fL (36.4-46.3); Red Blood Count 4.53 M/uL (4.2-5.4); White Blood Count 7.18 K/uL (4.8-10.8)
[2020-07-19 07:13] LABS: BUN Creatinine Ratio 19.8 (10-20); Calcium 9.4 mg/dl (8.5-10.1); Creatinine Clr Calc Pharmacy 120.6 ml/min; Est GFR (African American) 118.1 ml/min; Est GFR (Non-African American) 101.9 ml/min; Magnesium 2.1 mg/dl (1.8-2.4); Potassium 3.5 mmol/L (3.5-5.1)
[2020-07-19 08:34] LABS: Estimated Average Glucose 126 mg/dl
[2020-07-19] MEDS ORDERED: amLODIPine BESYLATE 5 MG TAB PO SCH (09:00)
[2020-07-19] MEDS ORDERED: hydrALAZINE HCL 20 MG/ML VIAL IV PRN ×2 (09:00→20:46)
[2020-07-19] MEDS: SODIUM CHLORIDE 0.9% 1000ML 1,000 ML IV SCH (09:07)
[2020-07-19] MEDS: NICOTINE 21 MG/24 HR TDSY TD SCH (09:11)
[2020-07-19] MEDS: ASPIRIN 81 MG ECTAB PO SCH (10:31)
[2020-07-19] MEDS: ATORVASTATIN 40 MG TAB PO SCH (10:31)
[2020-07-19] MEDS: CLOPIDOGREL BISULFATE 75 MG TAB PO SCH (10:32)
--- NOTE | 2020-07-19 10:41 | Hospitalist Progress Note ---
Date of Service July 19, 2020 Assessment & Plan (1) CVA (cerebral vascular accident): Patient with a new right parietal CVA, evidence of older left frontal and garrison infarcts Out of window on presentation for TPA Cleared by speech and was started on aspirin and clopidogrel p.o. Continue 40 mg atorvastatin p.o. daily, LDL above goal 144 HbA1c 6.0. Dietary changes discussed with patient. TTE pending Continue neurochecks as ordered PT/OT Appreciate neurology consult. Continue stay due to her elevated blood pressure, carotid artery stenosis and multiple risk factors for further stroke. (2) Hypertension: Will discontinue amlodipine. Treat systolic blood pressure > 180 with IV hydralazine. We will continue to low blood pressure with slowly decreasing over the next 24 to 48 hours (3) Carotid stenosis: Aspirin, Plavix as noted above statin as noted above Consult vascular surgery (4) Tobacco abuse: Discussed smoking cessation. Nicotine patch currently working well. Admission and Anticipated Discharge Date Admission Date: July 18, 2020 Subjective Patient reports slurred speech resolved. She is still having some difficulty with her left hand. No numbness on the left side. She denies any problems eating. No vision changes, hearing changes. [id number] Review of Systems Review of Systems: All systems reviewed & are unremarkable except as noted in HPI & below Physical Exam Constitutional: WD/WN, vitals as above cooperative and comfortable; no acute distress Eyes: PERRL, conjunctivae normal, anicteric sclerae EOM intact bilaterally (No diplopia) Neck: trachea midline, no thyromegaly Respiratory: normal respiratory effort, lungs clear to auscultation Cardiovascular: Rate/Rhythm: regular rate and regular rhythm Heart Sounds: no murmur Vessels: no JVD Extremities: + pedal edema (Trace ankles bilaterally) Gastrointestinal (Abdomen): normal bowel sounds, soft, nontender, no hepatosplenomegaly Neurologic: moves all extremities, + focal motor deficit (Mild reduced tug master strength on the left side) and awake; not confused Speech / Cognition: normal speech Motor/Sensory: no tremor and no pronator drift Cranial Nerves: PERRL, EOM intact bilaterally, tongue midline, normal hearing, able to rotate head bilaterally, able to elevate shoulders bilaterally, no nystagmus and symmetric palate elevation; + abnormal facial strength (Mild drooping of left side of mouth) Gait: no ataxic gait Coordination: + abnormal [id number] test (Mild difficulty on left) Psychiatric: A+Ox3, euthymic affect Results & Data Results & Data ([facility]) Vital Signs (Past 12 Hours) Vital Signs Temp Pulse Pulse Resp BP BP Pulse Ox 07/19/20 09:51 96 H 18 173/88 H 92 07/19/20 08:46 82 07/19/20 08:14 36.6 C 87 19 213/99 H 94 07/19/20 04:07 37.3 C 78 20 160/81 H 96 07/19/20 00:00 76 07/18/20 23:14 37.2 C 82 20 152/86 H 95 PG Care Time/CCT Total # of Minutes Spent Total Time Spent with Patient: Total time spent is greater than 50% in coordination of care (as documented) at patient's floor/unit and/or counseling patient: Coding Level of Care Code 23545 Subseq Obs Care Lvl 3 Diagnoses CVA (cerebral vascular accident) I63.9 Hypertension I10 Carotid stenosis I65.29 Tobacco abuse Z72.0
[2020-07-19 11:17] LABS: Thyroid Stimulating Hormone 0.293 uIu/ml (0.300-4.500)
[2020-07-19 11:30] LABS: T4 Free Thyroxine 1.03 ng/dl (0.8-1.6)
--- NOTE | 2020-07-19 12:56 | Consultation ---
Date of Consultation July 19, 2020 Assessment & Plan (1) Carotid stenosis: Pt with acute/subacute R hemispheric CVA on MRI and approx 80% stenosis of R ICA. Presented with L arm/hand/thigh numbness and mild dysarthria. Her sx are significantly improved, but not completely resolved. Will have Dr Dutta review CTA neck to determine whether pt would benefit from R CEA. Agree with initiation of plavix/ASA in meantime. Patient was seen, examined, and chart reviewed. Agree with exam and treatment plan of the Vascular PA. History of Present Illness Reason for Consultation: R ICA stenosis with CVA Attending Physician: Hi Zepeda MD History of Present Illness 54 yo f without significant medical hx, admitted d/t L arm and leg numbness and mild dysarthria that began upon waking yesterday, seen in consultation today for R ICA stenosis noted on CTA neck. Pt states no prior similar sx, but noted L hand numbness/tingling upon waking yesterday, which then extended more proximally to her forearm and upper arm as the morning went on. Also noted L thigh/knee numbness. When she began to feel that her speech was not normal, she called her and came to [facility]. Pt states her sx are improved today, but not completely resolved. Pt was hypertensive on arrival. Denies SHAH, amaurosis, chest pain, SOB, facial droop, dysphagia, abd pain, N/V, palpitations, rest pain, claudication, other complaints. MRI brain demonstrates R parietal CVA. CTA neck demonstrates approx 80% stenosis of R ICA. Allergies Allergy/AdvReac Type Severity Reaction Status Date / Time No Known Allergies Allergy Unverified 07/18/20 16:33 Home Medications Medication Instructions Recorded Confirmed Type No Known Home Medications 07/18/20 07/18/20 History amlodipine [Norvasc] 2.5 mg PO QAM #30 tab 07/20/20 Rx aspirin 81 mg PO QAM #30 tab 07/20/20 Rx atorvastatin 40 mg PO QAM #30 tab 07/20/20 Rx clopidogrel 75 mg PO DAILY 20 Days #20 tab 07/20/20 Rx nicotine [Nicoderm CQ] 21 mg TRANSDERMAL QAM #28 ea 07/20/20 Rx Patient History Medical History Hypertension Social History Smoking Status: Current every day smoker Hx Alcohol Use: No Hx Substance Use: No Preferred Language: Nigerian Communication Ability: Effective 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: No Beliefs That Will Affect Care: None marital status: Life Partner Current Living Situation: Spouse How many Children do You have: 3 Feels Safe at Home: Yes Assistive Devices: None Review of Systems Review of Systems: All systems reviewed & are unremarkable except as noted in HPI & below Physical Exam Constitutional: WD/WN, vitals as above + obese, healthy appearing, cooperative and comfortable; not in distress Eyes: PERRL, conjunctivae normal, anicteric sclerae ENMT: Ears: no hearing impairment Neck: trachea midline Respiratory: normal respiratory effort, lungs clear to auscultation Auscultation: + diminished lung sounds Cardiovascular: RRR, no murmur, no edema Gastrointestinal (Abdomen): normal bowel sounds, soft, nontender, no hepatosplenomegaly Musculoskeletal: no cyanosis or clubbing, extremities motor strength 5/5 Skin: no rashes, warm and dry Neurologic: moves all extremities and awake; no focal motor deficits, not confused and not obtunded Speech / Cognition: normal speech and normal cognition Psychiatric: A+Ox3, euthymic affect Results & Data ([facility]) Vital Signs (Past 12 Hours) Vital Signs Temp Pulse Pulse Resp BP BP Pulse Ox 07/19/20 11:25 36.7 C 86 19 171/83 H 96 07/19/20 09:51 96 H 18 173/88 H 92 07/19/20 08:46 82 07/19/20 08:14 36.6 C 87 19 213/99 H 94 07/19/20 04:07 37.3 C 78 20 160/81 H 96
--- NOTE | 2020-07-19 14:05 | XCELERA ---
[id number]
--- NOTE | 2020-07-19 14:15 | Neurology Consultation ---
Date of Consultation July 19, 2020 Assessment & Plan (1) Left sided numbness: (2) Carotid stenosis: (3) Tobacco abuse: (4) Stroke: Rocio Hawley is a 54 yo woman w/ PMH of HTN, tobacco abuse and carotid stenosis who p/t [facility] with acute onset of left sided numbness and dysarthria. Symptom localization: right centrum semiovale Stroke mechanism: lacunar vs vessel to vessel embolus, less likely hypercoagulable or cardioembolic Stroke WorkUp: - CT head: shows no hemorrhage, questionable hypodensity in the left parietal lobe - CTA head/neck: shows moderate to severe stenosis of the right ICA just proximal to the bifurcation, hypoplastic right vertebral artery, mild diffuse extra and intracranial atherosclerosis - MRI brain: shows a subacute infarct in the right centrum semiovale, chronic infarct in the right frontal lobe and left parietal lobe with moderate to severe SVID noted - TTE: EF 60-65%, borderline LVH, no interatrial shunt, no noted - Telemetry: pending - A1c: 6.0 - FLP: 144 - UDS: pending - Troponin, TSH: negative, low at 0.293 - Hypercoagulable labs (ordered): Cardiolipin Ab, Protein C and S, ATIII, FV Leiden, PT gene mutation, APC resistance Stroke Management: - Acute treatment: ASA - Continuous cardiac monitoring, recommend 30 day event monitor as outpatient if telemetry here unrevealing - Vitals, Neurochecks, NIHSS per unit routine - BP parameters: SBP CAP 180, start anti-hypertensives for goal normotension over next 3-4 days - Complete ischemic stroke workup with UDS, hypercoagulable panel - Consult speech, PT, OT for supportive management - Will peer counselor concerning stroke education, smoking cessation, healthy diet, physical activity, weight loss - Follow up with PCP for assistance with outpatient goals (BP <130/80, LDL <70, A1c <7) - Follow up in neurology clinic in 6-8 weeks with [facility] Secondary Stroke Prevention: - Antiplatelet: ASA 81mg po daily/plavix 75mg daily x21 days, then aspirin 81mg daily - Anticoagulation: Not indicated at this time - Statin: Atorvastatin 80mg daily HTN: - BP parameters, as above - Start home medications with goal of lowering BP to normotension over next 3-4 days FEN/GI: - Diet: Beside dysphagia to clear patient for PO meds/Cardiac HH diet - Monitor lytes and replete PRN Glucose Control: - Sliding scale insulin and accuchecks per primary team to avoid hyperglycemia Thank you for this interesting consult. Plan of care was discussed with primary team. Please call with any questions. 60 minutes was spent [id number] with patient, with more than 50% spent on counseling/coordination of care/charting. History of Present Illness Attending Physician: Hi Zepeda MD History of Present Illness Rocio Hawley is a 54 yo woman w/ PMH of HTN, tobacco abuse and carotid stenosis who p/t [facility] with acute onset of left sided numbness and dysarthria. 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 In the ED, she was afebrile, BP 216/190, heart rate 107, respiratory 20, satting 96% room air. Labs notable for WBC 8.6, elevated with 7, platelets 188, which is within normal, creatinine 0.74, glucose 131, INR 1, calcium/magnesium within normal, LFTs within normal, troponin negative, UA no infection, Covid negative. CT head shows no hemorrhage, questionable hypodensity in the left parietal lobe. CTA head and neck shows moderate to severe stenosis of the right ICA just proximal to the bifurcation, hypoplastic right vertebral artery, mild diffuse extra and intracranial atherosclerosis. MRI brain shows a subacute infarct in the right centrum semiovale, chronic infarct in the right frontal lobe and left parietal lobe with moderate to severe SVID noted. On examination, she reports that she was in her normal state of health until 7:30am on 07/18/20 when she woke up, went back to sleep and woke up again and noticed LUE numbness and dysarthria. Denies any weakness, aphasia or vision changes at time. Symptoms have slowly improved and just affect her 4th/5th digits today. Endorses smoking 1 ppd x 40 yrs, denies alcohol/illicits. Not on any medications at home. Stroke Workflow: Where patient arrived from: home CT ASPECT: 9 Time IV tpa is given: NA tPA bolus: NA tPA dose: NA If tpa not given, why not: Outside of time window, Uncontrolled hypertension >185 systolic or >110 diastolic If delay >60min after hospital arrival, why: NA If no IA therapy, why not: No LVO on CTA Patient Features: Admission NIHSS: 1 Admission Modified Karlie Scale: 0 Time patient last seen well: 11am on 07/18/20 Wake up stroke: No Intubation status: Not intubated Stroke Risk Factors: Hypertension: Y Hyperlipidemia: N Atrial Fib: N Tobacco: Y Diabetes: N Taking NOAC or warfarin: N Allergies Allergy/AdvReac Type Severity Reaction Status Date / Time No Known Allergies Allergy Unverified 07/18/20 16:33 Home Medications Medication Instructions Recorded Confirmed Type No Known Home Medications 07/18/20 07/18/20 History Patient History Medical History Hypertension Social History Smoking Status: Current every day smoker Hx Alcohol Use: No Hx Substance Use: No Preferred Language: [place] Communication Ability: Effective 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 Exam (Neuro) Physical Exam: General Exam: GEN: NAD, sitting in chair HEENT: No conjunctival injection, no rhinorrhea. CV: RRR on monitor, no significant edema. PULM: Nonlabored respirations on room air. Neuro Exam: MS: Awake and Alert. Oriented to person, place, and date. Speech fluent and appropriate without dysarthria or paraphasic errors. Language intact including naming, comprehension, repetition. Cognition and memory grossly intact. Attention intact. No neglect. CN: Visual laws full. No extinction to double simultaneous stimuli. Unable to visualize fundi on fundoscopic exam. PERRLA OU. EOMI without nystagmus. Facial sensation intact to LT. Facial muscles full and symmetric. Hearing intact to conversation. Shoulder shrug normal. Tongue midline. MOTOR: Normal bulk and tone. + pronator drift in LUE. BUE strength 5/5 at deltoids, biceps, triceps, wrist flexors and extensors, and finger flexors bilaterally. BLE strength 5/5 at iliopsoas, hamstrings, quadriceps, tibialis anterior, and gastrocnemius bilaterally. REFLEXES: 2+ at biceps, triceps, brachioradialis, trace patella, and absent Achilles bilaterally. Flexor plantar responses bilaterally. SENSORY: Intact to LT/vibration throughout, no extinction to double simultaneous stimuli. COORDINATION: No dysmetria or ataxia on [id number] bilaterally. Normal Evie bilaterally. GAIT: Deferred due to physical status. NIH STROKE SCALE 1A. Level of Consciousness (0-3) = 0 1B. LOC Questions (0-2) = 0 1C. LOC Commands (0-2) = 0 2. Best Horizontal Gaze (0-2) = 0 3. Visual Laws (0-3) = 0 4. Facial Palsy (0-3) = 0 5. Motor Arm Right (0-4) = 0 Left (0-4) = 0 6. Motor Leg Right (0-4) = 0 Left (0-4) = 0 7. Limb Ataxia (0-2) = 0 8. Sensory (0-2) = 0 9. Best Language (0-3) = 0 10. Dysarthria (0-2) = 0 11. Extinction and Inattention (0-2) = 0 NIHSS TOTAL = 0 Results & Data ([facility]) Vital Signs (Past 12 Hours) Vital Signs Temp Pulse Pulse Resp BP BP Pulse Ox 07/19/20 11:25 36.7 C 86 19 171/83 H 96 07/19/20 09:51 96 H 18 173/88 H 92 07/19/20 08:46 82 07/19/20 08:14 36.6 C 87 19 213/99 H 94 07/19/20 04:07 37.3 C 78 20 160/81 H 96 PG Care Time/CCT Total # of Minutes Spent Total Time Spent with Patient: Total time spent is greater than 50% in coordination of care (as documented) at patient's floor/unit and/or counseling patient: Coding Level of Care Code 46547 Inpt Consult Level 5 Diagnoses Left sided numbness R20.0 Carotid stenosis I65.29 Tobacco abuse Z72.0 Stroke I63.9
[2020-07-20] MEDS: NICOTINE 21 MG/24 HR TDSY TD SCH (08:12)
[2020-07-20] MEDS: CLOPIDOGREL BISULFATE 75 MG TAB PO SCH (08:13)
[2020-07-20] MEDS: ASPIRIN 81 MG ECTAB PO SCH (08:13)
[2020-07-20] MEDS: ATORVASTATIN 40 MG TAB PO SCH (08:13)
--- NOTE | 2020-07-20 08:36 | Surgery Progress Note ---
Date of Service July 20, 2020 Assessment & Plan (1) Carotid stenosis: Recommend CEA in the next two weeks. Can be discharged on plavix and low dose asa I have discussed the risks options and benefits of the procedure with the patient. The patient understands the risks options and benefits and agrees to the procedure. Admission and Anticipated Discharge Date Admission Date: July 18, 2020 Subjective The patient continues to improve. She claims that she is almost back to baseline. Physical Exam Neurologic: normal touch/pain/proprioception, CN's II-XI intact bilaterally, moves all extremities and awake; no focal motor deficits Results & Data ([facility]) Vital Signs (Past 12 Hours) Vital Signs Temp Pulse Pulse Resp BP BP Pulse Ox 07/20/20 08:17 178/85 H 07/20/20 07:40 36.6 C 87 19 177/102 H 96 07/20/20 07:26 70 07/20/20 03:53 36.7 C 71 18 144/77 H 94 07/19/20 23:54 37 C 83 18 166/90 H 95 07/19/20 23:00 80 07/19/20 20:36 37.1 C 89 18 186/110 H 96
[2020-07-20 10:57] LABS: Amphetamines+Metham, Urine Neg (Neg); Barbiturates, Urine Neg (Neg); Benzodiazepine, Urine Neg (Neg); Cocaine, Urine Neg (Neg); MDMA (Ecstacy), Urine Neg (Neg); Methadone, Urine Neg (Neg); Opiate, Urine Neg (Neg); Phencyclidine, Urine Neg (Neg)
[2020-07-20] MEDS ORDERED: amLODIPine BESYLATE 5 MG TAB PO SCH (11:45)
[2020-07-20] MEDS ORDERED: STROKE PATIENT DISCHARGE STA (14:39)
--- NOTE | 2020-07-20 15:10 | Pharmacy Report ---
Pharmacist Stroke Counseling - Date of Service July 20, 2020 - Scope: Pharmacy has been consulted to provide medication discharge counseling for this patient admitted with ischemic stroke as per the Pharmacist Discharge Counseling for Stroke Patients Protocol. - Medications on Discharge: Home Medications Medication Instructions Recorded Confirmed No Known Home Medications 07/18/20 07/18/20 New Rx's Medication Instructions Recorded amlodipine [Norvasc] 2.5 mg PO QAM #30 tab 07/20/20 aspirin 81 mg PO QAM #30 tab 07/20/20 atorvastatin 40 mg PO QAM #30 tab 07/20/20 clopidogrel 75 mg PO DAILY 20 Days #20 tab 07/20/20 nicotine [Nicoderm CQ] 21 mg TRANSDERMAL QAM #28 ea 07/20/20 - Action: The above medications, specifically ones for stroke treatment/prophylaxis, have been reviewed in detail with the patient and/or patient patient relations representative(s) prior to discharge. This includes indication, common adverse reactions, drug interactions, and medication administration. Medication counseling has been employed using the teach-back method to ensure understanding. - Outcome: The patient and/or patient patient relations representative(s) have demonstrated understanding of the medications. Additional comments: * Patient will acquire pill cutter at the pharmacy to make 2.5 mg amlodipine dose * present during counseling session * No barriers to medication compliance identified during counseling session - demonstrated understanding of medication additions Thank you for allowing pharmacy to be involved in the care of this patient. Please call [phone] with any additional questions
[2020-07-25 23:26] LABS: Anti-Thrombin III Activity 114 % normal (80-135); B2 Glycoprotein IgA <9 SAU (<=20); B2 Glycoprotein IgG <9 SGU (<=20); B2 Glycoprotein IgM 11 SMU (<=20); Phosphatidylserine IgG <10 U/mL (<10); Phosphatidylserine IgM 27 U/mL (<25); Protein S Functional(Activity) 90 % (60-140)
--- NOTE | 2020-07-26 13:50 | Discharge Summary ---
Date of Service July 20, 2020 Admission HPI Per Admitting Provider This is a 54-year-old female denies any past medical history that presents today complaining of left-sided numbness and weakness. Patient is pleasant good historian. Patient states that she was doing fine so she woke up this morning. She noted some numbness in her left upper extremity radiating down to her hand. There is a little bit of weakness as well. She is left-hand dominant. This morning progressed, she noted some similar symptoms in her upper leg down to her knee with some accompanied weakness. She denies any difficulty with walking. However, she became much more concerned when she started to have some dysarthria. She denies any expressive aphasia. She called her significant other who also noted the slurred speech and brought her to the emergency room for further evaluation. In the ER, she was found to be extremely hypertensive with a blood pressure over 200. She presented to the hospital more than 4 and half hours after symptoms had started and was therefore not a candidate for TPA. Stroke work-up did reveal a left parietal CVA along with some older lacunar and garrison infarcts. Patient tells me that her symptoms are almost completely resolved with just some residual numbness in her left arm. She denies any issues such as headache, fever, recent illness, chest pain, palpitations, abdominal pain, or lower extremity edema. Of note, she has not seen a physician in many years. She smokes about a pack a day since her teenage years. She is a nondrinker. Admission Exam Per Admitting Provider Constitutional: cooperative and comfortable; no acute distress Neck: trachea midline, no thyromegaly Respiratory: normal respiratory effort, lungs clear to auscultation Cardiovascular: Rate/Rhythm: regular rate and regular rhythm Heart Sounds: no murmur Vessels: + carotid bruit (? faint on R side); no JVD Extremities: + edema Gastrointestinal (Abdomen): normal bowel sounds, soft, nontender, no hepatos plenomegaly Musculoskeletal: no cyanosis or clubbing, extremities motor strength 5/5 Neurologic: patellar DTR's 2+ bilat, sensation intact and PERRL, EOMI, accommodation nl, no face palsy, no dysarthria Psychiatric: A+Ox3, euthymic affect Principal Diagnosis Acute ischemic stroke (cerebrovascular accident, CVA) Carotid artery stenosis Hypertensive urgency Discharge Exam Constitutional WD/WN, vitals as above cooperative and comfortable; no acute distress Eyes PERRL, conjunctivae normal, anicteric sclerae EOM intact bilaterally (No diplopia) Neck trachea midline, no thyromegaly Respiratory normal respiratory effort, lungs clear to auscultation Cardiovascular Rate/Rhythm: regular rate and regular rhythm Heart Sounds: no murmur Vessels: no JVD Extremities: + pedal edema (Trace ankles bilaterally) Gastrointestinal (Abdomen) normal bowel sounds, soft, nontender, no hepatosplenomegaly Neurologic moves all extremities, + focal motor deficit (Mild reduced network planner strength on the left side) and awake; not confused Speech / Cognition: normal speech Motor/Sensory: no tremor and no pronator drift Cranial Nerves: PERRL, EOM intact bilaterally, tongue midline, normal hearing, able to rotate head bilaterally, able to elevate shoulders bilaterally, no nystagmus and symmetric palate elevation; + abnormal facial strength (Mild drooping of left side of mouth) Gait: no ataxic gait Coordination: + abnormal [id number] test (Mild difficulty on left) Psychiatric A+Ox3, euthymic affect Discharge Data Allergies Allergy/AdvReac Type Severity Reaction Status Date / Time No Known Allergies Allergy Verified 07/25/20 15:55 Consultations 07/18/20 17:17 ED Decision to Admit Stat 07/18/20 19:10 Consult Neurology Routine 07/19/20 10:32 Consult Vascular Surgery Routine Ordered Studies 07/18/20 15:43 CT angio head w con Stat CT angio neck with con Stat CT head/brain wo con Stat 07/18/20 16:26 MR brain wo con Stat Hospital Course (1) CVA (cerebral vascular accident): Rocio Hawley is a 54 year old left-handed female admitted to [facility] from July 18-2020 due to left hand numbness and slurred speech. Acute ischemic stroke was confirmed on Brain MRI. Suspected secondary to hypertension, high cholesterol and smoking. She was started on aspirin, clopidogrel and atorvastatin for stroke risk reduction. She should continue the clopidogrel for 20 further days. Please continue aspirin and atorvastatin indefinitely. Outpatient physical therapy prescription given to patient to help with residual motor deficits. HbA1C level was 6.0. Dietary changes recommended initially. She should follow up with her primary care physician regarding this. Biggest modifiable risk factor for further cardiovascular disease is certainly her smoking. Nicotine patch has been useful during her hospitalization therefore prescription given on discharge. Diagnosed with uncontrolled hypertension. This should be slowly lowered over the next week for eventual aim of aim blood pressure less than 130/80. She was started on amlodipine 2.5mg which can be uptitrated on advice of her primary care provider. She was also diagnosed with carotid artery disease. Per neurology consultation this is not suspected to be the cause of your current stroke but on vascular consultation recommended this is operated on in the next 2 weeks.She will follow up with vascular surgery. Due to your young age hypercoagulable panel was ordered by neurology. She should follow up with neurology as below in the next 6-8 weeks for results of this. (2) Hypertension: (3) Carotid stenosis: (4) Tobacco abuse: Total Time Total Time Spent Total Time Spent (In Minutes): 50 Total Time Includes: Examination of the Patient, Discharge Planning, Medication Reconciliation and Communication With Other Providers Discharge Plan Discharge Items Patient Disposition: Home - Self-Care Reason For Visit: TIA Discharge Diagnosis: Acute ischemic stroke (cerebrovascular accident, CVA) Carotid artery stenosis Hypertensive urgency Condition on Discharge: Fair Activity: Resume your previous activity Non-emergency contact: Primary Care Provider Call non-emergency contact if: you have any medication questions and your symptoms worsen Follow-up/Referrals: Nadia Kelley MD [Physician] - (6-8 weeks) Jean Dutta MD [Physician] - Conor Herman MD [Resident] - 07/27/20 1:00 pm (within 1 week. Medical assistance pending. BP post stroke management) PCP,NO [Primary Care Provider] - Diet: Heart Healthy Addtl Attending Provider Instructions: You were admitted to [facility] from July 18-2020 due to left hand numbness and slurred speech. Acute ischemic stroke was confirmed on Brain MRI. Suspected secondary to hypertension, high cholesterol and smoking. You were started on antiplatelets (aspirin and clopidogrel) and cholesterol (atorvastatin) for stroke risk reduction. Please continue the clopidogrel for 20 further days. Please continue aspirin and atorvastatin indefinitely. Please follow up with outpatient physical therapy to help with residual motor deficits. Your HbA1C level (indicator average blood sugar level has been for the past 2 to 3 months) was 6.0 which indicates you are at risk of diabetes. Recommend dietary changes initially with reduce fast acting carbohydrates such as sugar and flour in your diet (see eating healthy leaflets below). Please follow up with your primary care physician regarding this. You biggest modifiable risk factor for further strokes and heart attacks is certainly your smoking. Please see additional smoking cessation advice with attached documentation. Nicotine patch has been useful while you are in hospital and is prescribed on discharge to aid you continued smoking cessation. Your blood pressure was elevated (hypertension) during your hospital admission. This should be slowly lowered over the next week for eventual aim of aim blood pressure less than 130/80. You have been started on amlodipine 2.5mg which can be uptitrated on advice of your primary care provider for this. You were also noted to have carotid artery disease. Per neurology consultation this is not suspected to be the cause of your current stroke but puts you at high risk for further strokes. On consultation with vascular surgery recommended this is operated on in the next 2 weeks. Please follow up with vascular surgery Due to your young age hypercoagulable panel was ordered by neurology. Please follow up with neurology as above in the next 6-8 weeks for results of this. Kind regards, Dr Hi Zepeda Pending Studies at Discharge: Yes Stand-Alone Forms: Medications to Prevent Stroke, My [facility], Smoking Cessation Medications and DC Order Prescriptions: New atorvastatin 40 mg Tablet 40 mg PO QAM Qty: 30 RF: 0 amlodipine [Norvasc] 5 mg Tablet 2.5 mg PO QAM Qty: 30 RF: 0 aspirin 81 mg Tablet,Delayed Release (Dr/Ec) 81 mg PO QAM Qty: 30 RF: 0 No Action nicotine [Nicoderm CQ] 21 mg/24 hr patch 24 hour 21 mg transdermal QPM RF: 0 Discharge Orders: Discharge Order (Routine); Ordered 07/20/20 Ordered By: Hi Ballesteros/Other Patient Handouts: Prediabetes, Stroke and Heart Disease, Controlling High Blood Pressure, Stroke: Taking Medicines, 5 Steps for Eating Healthier, Stroke: Resources and Support, Staying Smoke-Free, Risk Factors for Stroke, Stroke Regaining Movement, Stroke Prevention Activity, Carotid Artery Disease, A1C Admission Data Admit Date/Time: 07/20/20 11:48 Attending Provider: Hi Zepeda Admit Provider: Piter Davis Primary Care Provider: PCP,NO Other Providers: Piter Davis ; Nadia Kelley ; Jean Dutta Other Interventions: Discharge Summary Assessment (RN) Last Done: 07/20/20 12:39 Coding Level of Care Code D/C Day Management >30 mins Diagnoses CVA (cerebral vascular accident) I63.9 Hypertension I10 Carotid stenosis I65.29 Tobacco abuse Z72.0
== END 2020-07-20 15:29 | disposition home or self-care (01) | DRG 65 ==
LOC: 2S 14:53 → ED 14:53 → SUATTDRO 17:34 → 2S 18:36

== ENCOUNTER 2020-08-08 09:25 | Inpatient (IN) ==
--- NOTE | 2020-07-26 09:30 | Anesthesiology Consultation ---
Date of Service July 26, 2020 Assessment & Plan (1) Encounter for pre-operative examination: COVID Status: As of 07/25 PAT user experience lead, patient denies travel to endemic area, known exposure/sick contacts, or symptoms of COVID19. Preoperative COVID19 testing to be completed on 07/28 at [facility]. Chart Review Chart Review: Acceptable Risk for Surgery and Patient NOT seen in Pre Admission Testing History Surgery Operation Date: 08/01/20 10:20 Proposed Procedures p Right Carotid Endarterectomy - Jean Dutta MD Height/Weight Height: 5 ft 9 in Weight: 88.451 kg Allergies Allergy/AdvReac Type Severity Reaction Status Date / Time No Known Allergies Allergy Verified 07/25/20 15:55 Medications Home Medications Medication Instructions Recorded Confirmed Last Taken amlodipine [Norvasc] 2.5 mg PO QAM #30 tab 07/20/20 07/25/20 Unknown aspirin 81 mg PO QAM #30 tab 07/20/20 07/25/20 Unknown atorvastatin 40 mg PO QAM #30 tab 07/20/20 07/25/20 Unknown clopidogrel 75 mg PO QAM 07/25/20 07/25/20 Unknown nicotine [Nicoderm CQ] 21 mg TRANSDERMAL QPM 07/25/20 07/25/20 Unknown Past Medical History Medical History (Updated 07/26/20 @ 09:32 by Anastacio Rogers) High cholesterol History of stroke 1 WEEK AGO, TX AT [facility] - DISCHARGED AUGUST 20 - NO RESIDUAL EFFECTS Hypertension Past Family History Family History (Updated 07/25/20 @ 16:04 by Saad Kaur RN) Father Family history of diabetes mellitus Family history of colonic polyps Mother Family history of diabetes mellitus Past Surgical History Surgical History (Updated 07/25/20 @ 16:06 by Saad Kaur RN) History of cardiac cath APPROX 1 WEEK AGO, [facility] - NO FINDINGS / NO STENT(S) Social History Smoking Status: Current some day smoker tobacco type: cigarettes Smoking cigarettes per day: TRYING TO QUIT / CURRENT PATCH/ TWO CIGARETTES OVER THE LAST WEEK/ADVISED Do You Dip or Chew Tobacco: No Hx Alcohol Use: No Hx Substance Use: No substance use type: does not use Lab Results Anesthesia Preop Results Results Anesthesia Widget: WBC 7.18 K/uL (4.8-10.8) 07/19/20 Hgb 13.8 g/dL (12.0-16.0) 07/19/20 Hct 40.3 % (37-47) 07/19/20 Plt 172 K/uL (130-400) 07/19/20 Na 140 mmol/L (136-145) 07/19/20 K 3.5 mmol/L (3.5-5.1) 07/19/20 Cl 109 mmol/L (98-107) H 07/19/20 CO2 26 mmol/L (21-32) 07/19/20 BUN 13 mg/dl (7-18) 07/19/20 Creat 0.64 mg/dl (0.6-1.2) 07/19/20 Glucose Level 118 mg/dl (70-99) H 07/19/20 POC Glucose 134 mg/dl (70-99) H 07/18/20 PT 9.8 Seconds (9.0-12.0) 07/18/20 PTT 23.1 Seconds (21.0-31.0) 07/18/20 INR 1.0 (0.9-1.1) 07/18/20 TSH 0.293 uIu/ml (0.300-4.500) L 07/19/20 Free T4 1.03 ng/dl (0.8-1.6) 07/19/20 HA1c 6.0 % (4.5-5.6) H 07/19/20 Urine Color Yellow 07/18/20 Urine Appearance Clear (Clear) 07/18/20 Urine pH 7.5 (4.5-7.5) 07/18/20 Urine Specific [place] 1.033 (1.000-1.030) H 07/18/20 Urine Protein Negative (Negative) 07/18/20 Urine Glucose (UA) Negative (Negative) 07/18/20 Urine Ketones Negative (Negative) 07/18/20 Urine Blood 1+ (Negative) H 07/18/20 Urine Nitrite Negative (Negative) 07/18/20 Urine Bilirubin Negative (Negative) 07/18/20 Urine Urobilinogen Negative (Negative) 07/18/20 Urine Leukocyte Esterase Negative (Negative) 07/18/20 Urine WBC (Auto) 1-5 /hpf (0-5) 07/18/20 Urine RBC (Auto) 0-4 /hpf (0-4) 07/18/20 Urine Hyaline Casts (Auto) 0 /lpf (0-5) 07/18/20 Urine Epithelial Cells (Auto) 10-20 /lpf (0-5) H 07/18/20 Urine Bacteria (Auto) Negative (Negative) 07/18/20 COVID-19 PCR NEGATIVE (Negative) 07/18/20 Blood Type A Positive 07/18/20 Antibody Screen NEGATIVE 07/18/20 Testing Electrocardiogram Date: 07/18/20 Normal sinus rhythm @ 93bpm. Possible Left atrial enlargement. Chest X-Ray Date: 07/18/20 IMPRESSION: 1. Mild vascular/interstitial prominence without evidence of overt failure 2. No evidence of focal pulmonary consolidation 3. Paratracheal soft tissue prominence, consistent with the patient's known thyroid goiter. Echocardiogram Date: 07/18/20 EF: 60-65% LV Function: normal RWMA: + none Other Findings: + LVH (borderline concentric) Valvular Disease: + no significant valvular disease (but valves not well seen) Other Testing Brain MRI 07/18/20 IMPRESSION: 1. 9 mm focus of restricted water diffusion within the deep white matter of the right parietal lobe indicative of acute/subacute infarct 2. Moderately extensive white matter disease, likely secondary to age advanced small vessel ischemic disease. 3. Presumed old lacunar infarcts within the left garrison and deep white matter of the right frontal lobe.. Neck CTA 07/18/20 IMPRESSION: 1. 80% diameter stenosis in the proximal right internal carotid artery. 2. No evidence of hemodynamically significant left internal carotid artery stenosis. 3. No evidence of vertebral artery stenosis or dissection. 4. Multinodular thyroid goiter 5. Indeterminate 1 cm right tonsillar hypodensity. Clinical correlation and follow-up recommended.
--- NOTE | 2020-08-08 07:38 | History & Physical Report ---
Date of Service August 08, 2020 History of Present Illness Primary Care Provider: MARK PCP July 19, 2020 Assessment & Plan (1) Carotid stenosis: Pt with acute/subacute R hemispheric CVA on MRI and approx 80% stenosis of R ICA. Presented with L arm/hand/thigh numbness and mild dysarthria. Her sx are significantly improved, but not completely resolved. Will have Dr Dutta review CTA neck to determine whether pt would benefit from R CEA. Agree with initiation of plavix/ASA in meantime. Patient was seen, examined, and chart reviewed. Agree with exam and treatment plan of the Vascular PA. History of Present Illness Reason for Consultation: R ICA stenosis with CVA Attending Physician: Hi Zepeda MD History of Present Illness 54 yo f without significant medical hx, admitted d/t L arm and leg numbness and mild dysarthria that began upon waking yesterday, seen in consultation today for R ICA stenosis noted on CTA neck. Pt states no prior similar sx, but noted L hand numbness/tingling upon waking yesterday, which then extended more proximally to her forearm and upper arm as the morning went on. Also noted L thigh/knee numbness. When she began to feel that her speech was not normal, she called her and came to [facility]. Pt states her sx are improved today, but not completely resolved. Pt was hypertensive on arrival. Denies SHAH, amaurosis, chest pain, SOB, facial droop, dysphagia, abd pain, N/V, palpitations, rest pain, claudication, other complaints. MRI brain demonstrates R parietal CVA. CTA neck demonstrates approx 80% stenosis of R ICA. Allergies Allergy/AdvReac Type Severity Reaction Status Date / Time No Known Allergies Allergy Unverified 07/18/20 16:33 Home Medications Medication Instructions Recorded Confirmed Type No Known Home Medications 07/18/20 07/18/20 History amlodipine [Norvasc] 2.5 mg PO QAM #30 tab 07/20/20 Rx aspirin 81 mg PO QAM #30 tab 07/20/20 Rx atorvastatin 40 mg PO QAM #30 tab 07/20/20 Rx clopidogrel 75 mg PO DAILY 20 Days #20 tab 07/20/20 Rx nicotine [Nicoderm CQ] 21 mg TRANSDERMAL QAM #28 ea 07/20/20 Rx Patient History Medical History Hypertension Social History Smoking Status: Current every day smoker Hx Alcohol Use: No Hx Substance Use: No Preferred Language: Serbian Communication Ability: Effective Liquified Natural Gas Technician Required: No Beliefs That Will Affect Care: None marital status: Life Partner Current Living Situation: Spouse How many Children do You have: 3 Feels Safe at Home: Yes Assistive Devices: None Review of Systems Review of Systems: All systems reviewed & are unremarkable except as noted in HPI & below Physical Exam Constitutional: WD/WN, vitals as above + obese, healthy appearing, coopera tive and comfortable; not in distress Eyes: PERRL, conjunctivae normal, anicteric sclerae ENMT: Ears: no hearing impairment Neck: trachea midline Respiratory: normal respiratory effort, lungs clear to auscultation Auscultation: + diminished lung sounds Cardiovascular: RRR, no murmur, no edema Gastrointestinal (Abdomen): normal bowel sounds, soft, nontender, no hepatosplenomegaly Musculoskeletal: no cyanosis or clubbing, extremities motor strength 5/5 Skin: no rashes, warm and dry Neurologic: moves all extremities and awake; no focal motor deficits, not confused and not obtunded Speech / Cognition: normal speech and normal cognition Psychiatric: A+Ox3, euthymic affect Results & Data ([facility]) Vital Signs (Past 12 Hours) Vital Signs Temp Pulse Pulse Resp BP BP Pulse Ox 07/19/20 11:25 36.7 C 86 19 171/83 H 96 07/19/20 09:51 96 H 18 173/88 H 92 07/19/20 08:46 82 07/19/20 08:14 36.6 C 87 19 213/99 H 94 07/19/20 04:07 37.3 C 78 20 160/81 H 96 Signed By:<Electronically signed by Gia Parra PA-C>07/25/20 0849<Electronically signed by Jean Dutta MD>07/25/20 0850 Created: 07/19/20 1247 The status of this report is Signed.Draft = Not yet reviewed or approved by Medical Physician.Signed = Reviewed and approved by Medical Physician. Allergies Allergy/AdvReac Type Severity Reaction Status Date / Time No Known Allergies Allergy Verified 07/25/20 15:55 Home Medications Medication Instructions Recorded Confirmed Type amlodipine [Norvasc] 2.5 mg PO QAM #30 tab 07/20/20 07/25/20 Rx aspirin 81 mg PO QAM #30 tab 07/20/20 07/25/20 Rx atorvastatin 40 mg PO QAM #30 tab 07/20/20 07/25/20 Rx clopidogrel 75 mg PO QAM 07/25/20 07/25/20 Rx nicotine [Nicoderm CQ] 21 mg TRANSDERMAL QPM 07/25/20 07/25/20 History Past Med/Surg History Medical History (Updated 07/26/20 @ 09:32 by Anastacio Rogers) High cholesterol History of stroke 1 WEEK AGO, TX AT [facility] - DISCHARGED AUGUST 20 - NO RESIDUAL EFFECTS Hypertension Surgical History (Updated 07/25/20 @ 16:06 by Saad Kaur, RN) History of cardiac cath APPROX 1 WEEK AGO, [facility] - NO FINDINGS / NO STENT(S) Family History (Updated 07/25/20 @ 16:04 by Saad Kaur RN) Father Family history of diabetes mellitus Family history of colonic polyps Mother Family history of diabetes mellitus Social History Smoking Status: Current some day smoker Cigarettes Per Day: TRYING TO QUIT / CURRENT PATCH/ TWO CIGARETTES OVER THE LAST WEEK/ADVISED; Hx Alcohol Use: No Hx Substance Use: No Preferred Language: Serbian Communication Ability: Effective Liquified Natural Gas Technician Required: No Beliefs That Will Affect Care: None marital status: Life Partner Current Living Situation: Spouse How many Children do You have: 3 Feels Safe at Home: Yes Assistive Devices: None
[~2020-08-08 09:25] MED LIST: CEFAZOLIN 2,000 MG/15 ML SYR IV SCH; LACTATED RINGER'S 1,000 ML IV SCH
[2020-08-08] MEDS ORDERED: MIDAZOLAM HCL 1 MG/ML 2ML VIAL ONE (09:28)
[2020-08-08] MEDS ORDERED: ONDANSETRON INJ 2 MG/ML 2 ML VIAL ONE ×2 (09:28→13:45)
[2020-08-08] MEDS ORDERED: PROPOFOL IV EMULSION 10 MG/ML 20 ML VIAL IV ONE ×2 (09:28→13:15)
[2020-08-08] MEDS ORDERED: fentaNYL citrate 100 MCG/2 ML VIAL ONE ×3 (09:28→13:02)
[2020-08-08] MEDS ORDERED: LIDOCAINE 2% 2 ML VIAL/AMP(20MG/ML) INFIL ONE (09:28)
[2020-08-08] MEDS ORDERED: DEXAMETHASONE SOD INJ 4 MG/ML VIAL ONE (09:28)
[2020-08-08] MEDS ORDERED: HEPARIN SOD (PORCINE) 1000 UNIT/ML ONE (09:55)
[2020-08-08] MEDS ORDERED: PHENYLEPHRINE HCL 10 MG/ML VIAL ONE (09:57)
[2020-08-08] MEDS ORDERED: HEPARIN (PORCINE) 1000 UNIT/ML 10 ML (CATH LAB USE ONLY) ONE (11:14)
[2020-08-08] MEDS ORDERED: BUPIVACAINE/EPINEPHRINE 0.5% MPF 1:200,000 30 ML VIAL ONE (11:14)
[2020-08-08] MEDS ORDERED: LIDOCAINE 1% LOCAL 20 ML VIAL ONE (11:15)
[2020-08-08] MEDS ORDERED: THROMBIN FOR SOLN 20000 UNIT KIT ONE (11:15)
[2020-08-08] MEDS ORDERED: GELATIN SPONGE SZ 100 ONE (11:15)
--- NOTE | 2020-08-08 11:30 | History & Physical Bridge Note ---
Date of Service August 08, 2020 History & Physical Bridge Note I have examined the patient, reviewed the History & Physical and in the interval since the performance of the History & Physical I have noted the following changes of clinical significance: no changes noted
[2020-08-08] MEDS ORDERED: ePHEDrine sulfate 50 MG/ML AMP IV PRN (11:37)
[2020-08-08] MEDS ORDERED: ONDANSETRON INJ 2 MG/ML 2 ML VIAL IV PRN ×2 (11:37→16:12)
[2020-08-08] MEDS ORDERED: NALOXONE HCL 0.4 MG/1 ML VIAL/CARP IV PRN (11:37)
[2020-08-08] MEDS ORDERED: PROMETHAZINE HCL 12.5 MG in SODIUM CHLORIDE 0.9% 50 ML IV PRN (11:37)
[2020-08-08] MEDS ORDERED: FLUMAZENIL 0.1 MG/1 ML 10 ML VIAL IV PRN (11:37)
[2020-08-08] MEDS ORDERED: LABETALOL HCL IV 5 MG/ML 20ML IV PRN (11:37)
[2020-08-08] MEDS ORDERED: fentaNYL citrate 100 MCG/2 ML VIAL IV PRN (11:37)
[2020-08-08] MEDS ORDERED: ATROPINE SULFATE 0.1 MG/ML 10ML SYR IV PRN (11:37)
[2020-08-08] MEDS ORDERED: ROCURONIUM BROMIDE 10 MG/ML 5 ML VIAL IV ONE (12:41)
[2020-08-08] MEDS ORDERED: LABETALOL HCL IV 5 MG/ML 20ML IV ONE (13:04)
--- NOTE | 2020-08-08 14:02 | Post Operative Brief Note ---
Immediate Post Op Note v1 Date of Surgery August 08, 2020 Pre & Post Diagnosis Operation Date: 08/08/20 10:50 Pre-Op Diagnosis: Right Internal Carotid Artery Stenosis Post-Op Diagnosis: Right Internal Carotid Artery Stenosis I identified the patient and participated in the time-out.: Yes Procedure Operation Date: 08/08/20 10:50 Actual Procedures p Right Carotid Endarterectomy with Bovine Patch Graft(Right) - Jean Dutta MD Surgeon Jean Dutta MD Insect Control Inspector MD Dolores Estimated Blood Loss 50 Findings Consistent with Post-Op Diagnosis Anesthesia Type General Complications none Disposition Accompanied Patient To Recovery: No Disposition: Recovery Room
--- NOTE | 2020-08-08 14:06 | Operative Report ---
Post Operative Report Pre & Post Diagnosis Operation Date: 08/08/20 10:50 Pre-Op Diagnosis: Right Internal Carotid Artery Stenosis Post-Op Diagnosis: Right Internal Carotid Artery Stenosis I identified the patient and participated in the time-out.: Yes Procedure Operation Date: 08/08/20 10:50 Actual Procedures p Right Carotid Endarterectomy with Bovine Patch Graft(Right) - Jean Dutta MD Surgeon Jean Dutta MD Riffler Tender MD Dolores Estimated Blood Loss 50 Findings Consistent with Post-Op Diagnosis Specimens None Anesthesia Type General Disposition Accompanied Patient To Recovery: No Disposition: Surgical ICU Indications This is a 54 yo F who presents with R carotid disease. She was recommended a R carotid endarterectomy. I have discussed the risks options and benefits of the procedure with the patient. The patient understands the risks options and benefits and agrees to the procedure. Description of Procedure The patient was taken to the operating room and placed in supine position. After general anesthesia was accomplished the right side of the neck was prepped and draped in a sterile manner. The patient was identifed and a timeout was performed. A longitudinal neck incision was then made coursing along the medial border of the sternocleidomastoid muscle. The incision was taken down through the platysmal layer. The facial vein was identified, ligated, and divided. The common carotid artery was then seen. It was dissected free down to the omohyoid muscle. The dissection was carried upward until the external carotid artery and superior thyroid artery was seen. The superior thyroid artery was slung with a 2-0 silk suture. The external carotid was slung with a red rubber vessel loop. Next the dissection was carried up along the internal carotid artery. This was carried upward to beyond the area of narrowing. The hypoglossal nerve was seen and preserved. The patient was heparinized. After adequate heparinization was accomplished, the internal, external, and common carotid arteries were clamped. A longitudinal arteriotomy was started on the common carotid artery and extended upward along the internal carotid artery to a point beyond the area of narrowing. There was calcified plaque of the internal carotid artery origin causing approximately 85-90% narrowing. A Sundt shunt was then placed in the internal, followed by the common carotid artery and held in place with Demetri clamps. There was good back bleeding seen from the internal carotid artery. The endarterectomy was then started in the appropriate plane on the common carotid artery. This was carried upward and the external carotid was everted and endarterectomized. The endarterectomy was then carried up along the internal carotid artery till a nice feathering breakoff point was accomplished beyond the end of the plaque. The endarterectomy was then carried down further on the common carotid artery. At end of the arteriotomy, the plaque was then transected. Under loop magnification, all loose debris and flaps were removed. There is no distal flap seen at the end of the endarterectomy site. The arteriotomy then closed using an Bovine patch and a running CV 6 [place] suture. This was done in the usual vascular fashion. Prior to completing the closure, the Sundt shunt was removed and the internal and common carotid arteries were reclamped. Backbleeding and forward bleeding was allowed to occur. The flow surface was irrigated with heparinized saline. The final few sutures were then placed and securely tied. Clamps were then removed off the external and common carotid arteries. The clamp was then removed the internal carotid artery. Good distal flow was seen. Adequate hemostasis was seen of the patch. The wound was inspected and adequate hemostasis was obtained. The wound was irrigated with antibiotic solution. It was then closed with a running 3-0 Vicryl suture for the platysmal layer and a 4-0 subcuticular Vicryl suture for the skin edges. Dermabond was used for dressing. After drapes were removed but vbefore extubation, swelling was noted in the right neck. The site was reprepped and draped in sterile fashion. The incision was opened and the platysmal stitches were removed. The operative site was re- explored and a small hematoma was evacuated. The was no active vessel bleeding, but some oozing from the raw surfaces. Hemostasis was achieved with electrocautery. The platysmal layer was closed with 3-0 Vicryl suture and the skin was closed with lauren. A dressing was placed over the incision and the patient was awoken from anesthesia. The patient left the operation room in satisfactory condition and tolerated the procedure well. All needle and sponge counts were correct at the end of the procedure. Dr. Dutta was present and scrubbed for the entire procedure. I attest to the content of the Intraoperative Record and any orders documented therein. Any exceptions are noted below.
[2020-08-08] MEDS ORDERED: SUGAMMADEX SODIUM 200 MG/2 ML VIAL IV ONE (14:53)
--- NOTE | 2020-08-08 15:14 | Anesthesiology Progress Note ---
Date of Service August 08, 2020 Anesthesia Post Procedure Vital Signs Vital Signs: Temp Pulse Resp BP Pulse Ox 08/08/20 10:43 73 20 163/105 H 95 08/08/20 10:29 36.8 C 76 20 194/102 H 98 Transfer of Care Handoff Completed per policy Notes Mental Status: alert / awake / arousable and participated in evaluation Patient Amnestic to Procedure: Yes Nausea / Vomiting: adequately controlled Pain: adequately controlled Airway Patency, RR, SpO2: stable & adequate BP & HR: stable & adequate Hydration State: stable & adequate Anesthetic Complications: no major complications apparent
[2020-08-08] MEDS ORDERED: MoRPHine SULFATE 4 MG/ML 1 ML CARP\\VIAL IV PRN (16:12)
[2020-08-08] MEDS: ACETAMINOPHEN 325 MG TAB PO PRN (16:32)
--- NOTE | 2020-08-08 16:48 | Critical Care Consultation ---
Date of Consultation August 08, 2020 Assessment & Plan (1) Carotid stenosis: 54-year-old female status post right carotid endarterectomy. Continue usual post endarterectomy care per vascular surgery. Blood pressure management per vascular surgery. Pain management per vascular surgery surgery. Some bleeding at the site of the incision. Dr. Dutta aware and recommended pressure dressing. It appears that the bleeding has largely stopped. No airway compromise noted. ICU team will continue to follow while the patient is in the intensive care unit. (2) CVA (cerebral vascular accident): (3) Hypertension: History of Present Illness Reason for Consultation: Attending Physician: Jean Dutta MD History of Present Illness 54-year-old female who was recently discharged from the hospital on 07/20/2020 for acute ischemic stroke. Neck CTA demonstrated 80% diameter stenosis in the proximal right internal carotid artery. Endarterectomy was recommended. Patient underwent right carotid endarterectomy today by Dr. Dutta. She is having some mild pain in her neck post surgery. She is hyp ertensive. Dr. Dutta has ordered nitroglycerin infusion. Allergies Allergy/AdvReac Type Severity Reaction Status Date / Time No Known Allergies Allergy Verified 08/08/20 10:09 Home Medications Medication Instructions Recorded Confirmed Type amlodipine [Norvasc] 2.5 mg PO QAM #30 tab 07/20/20 08/08/20 Rx aspirin 81 mg PO QAM #30 tab 07/20/20 08/08/20 Rx atorvastatin 40 mg PO QAM #30 tab 07/20/20 08/08/20 Rx clopidogrel 75 mg PO QAM 07/25/20 08/08/20 Rx nicotine [Nicoderm CQ] 21 mg TRANSDERMAL QPM 07/25/20 08/08/20 History Patient History Medical History High cholesterol History of stroke 1 WEEK AGO, TX AT [facility] - DISCHARGED AUGUST 20 - NO RESIDUAL EFFECTS Hypertension Surgical History History of cardiac cath APPROX 1 WEEK AGO, [facility] - NO FINDINGS / NO STENT(S) Family History Father Family history of diabetes mellitus Family history of colonic polyps Mother Family history of diabetes mellitus Social History Smoking Status: Current every day smoker Cigarettes Per Day: TRYING TO QUIT / CURRENT PATCH/ TWO CIGARETTES OVER THE LAST WEEK/ADVISED; Do You Dip or Chew Tobacco: No; Hx Alcohol Use: No Hx Substance Use: No Preferred Language: Romansh Communication Ability: Effective Casing Runner Required: No Beliefs That Will Affect Care: None marital status: Life Partner Current Living Situation: Spouse How many Children do You have: 3 Other Information That Helps Us Care for You: No Feels Safe at Home: Yes Assistive Devices: None Review of Systems Review of Systems: All systems reviewed & are unremarkable except as noted in HPI & below Physical Exam Constitutional: WD/WN, vitals as above Neck: Large incision noted on the right that is stapled. Mildly oozing of blood noted. Respiratory: normal respiratory effort, lungs clear to auscultation Cardiovascular: RRR, no murmur, no edema Gastrointestinal (Abdomen): normal bowel sounds, soft, nontender, no hepatosplenomegaly Musculoskeletal: no cyanosis or clubbing, extremities motor strength 5/5 Skin: no rashes, warm and dry Neurologic: PERRL, EOMI, accommodation nl, no face palsy, no dysarthria Psychiatric: A+Ox3, euthymic affect Results & Data Results & Data ([facility]) Vital Signs (Past 12 Hours) Vital Signs Temp Pulse Pulse Resp BP BP Pulse Ox 08/08/20 15:25 97.2 F L 72 14 135/69 150/54 H 97 08/08/20 15:15 74 13 122/75 154/56 H 97 08/08/20 15:05 82 18 159/95 H 171/75 H 94 08/08/20 14:55 74 18 127/72 155/60 H 97 08/08/20 14:46 97.7 F 76 18 148/55 H 96 08/08/20 10:43 73 20 163/105 H 95 08/08/20 10:29 98.2 F 76 20 194/102 H 98 vital signs, labs and imaging reviewed Coding Level of Care Code 44606 Inpt Consult Level 4 Diagnoses Carotid stenosis I65.29 CVA (cerebral vascular accident) I63.9 Hypertension I10
[2020-08-08] MEDS ORDERED: STAT IV Infusion **Titration per Protocol STA (17:03)
[2020-08-08] MEDS ORDERED: NITROGLYCERIN/D5W 100MCG/ML 250 ML IV SCH (17:15)
[2020-08-08] MEDS: oxyCODONE/ACETAMINOPHEN 5mg/325mg TAB PO PRN ×2 (17:47→21:37)
[2020-08-08] MEDS: LACTATED RINGER'S 1,000 ML IV SCH ×2 (18:06→20:56)
[2020-08-08] MEDS: ceFAZolin 2000MG 2,000 MG/15 ML SYR IV SCH (20:57)
[2020-08-08] MEDS: NICOTINE 21 MG/24 HR TDSY TD SCH (20:58)
[2020-08-09] MEDS: ACETAMINOPHEN 325 MG TAB PO PRN ×4 (00:01→19:26)
[2020-08-09] MEDS: LACTATED RINGER'S 1,000 ML IV SCH (04:27)
[2020-08-09 05:00] LABS: Basophils # (auto) 0.01 K/uL (0-0.2); Basophils % (auto) 0.1 %; Eosinophils # (auto) 0.07 K/uL (0-0.5); Eosinophils % (auto) 0.9 %; Hematocrit (blood only) 33.9 % (37-47); Hemoglobin 11.2 g/dL (12.0-16.0); Immature Granulocytes # (auto) 0.01 K/uL (0.00-0.02); Immature Granulocytes % (auto) 0.1 %; Lymphocytes # (auto) 1.28 K/uL (1.2-3.4); Lymphocytes % (auto) 16.6 %; Mean Corpuscular Hemoglobin 29.7 pg (25-34); Mean Corpuscular Volume 89.9 fL (80-100); Mean Platelet Volume 11.2 fL (7.4-10.4); Monocytes # (auto) 0.38 K/uL (0.11-0.59); Monocytes % (auto) 4.9 %; Neutrophils # (auto) 5.94 K/uL (1.4-6.5); Neutrophils % (auto) 77.4 %; Platelet Count 144 K/uL (130-400); RDW Coefficient of Variation 13.5 % (11.5-14.5); RDW Standard Deviation 44.4 fL (36.4-46.3); Red Blood Count 3.77 M/uL (4.2-5.4); White Blood Count 7.69 K/uL (4.8-10.8)
[2020-08-09] MEDS: ceFAZolin 2000MG 2,000 MG/15 ML SYR IV SCH (06:03)
[2020-08-09] MEDS: ASPIRIN 81 MG ECTAB PO SCH (08:07)
[2020-08-09] MEDS: ATORVASTATIN 40 MG TAB PO SCH (08:08)
[2020-08-09] MEDS ORDERED: amLODIPine BESYLATE 5 MG TAB PO SCH (09:00)
[2020-08-09] MEDS ORDERED: amLODIPine BESYLATE 5 MG TAB PO STA (10:14)
[2020-08-09] MEDS ORDERED: LABETALOL HCL IV 5 MG/ML 20ML IV STA (10:15)
[2020-08-09 10:41] LABS: BUN Creatinine Ratio 14.5 (10-20); Calcium 8.9 mg/dl (8.5-10.1); Creatinine Clr Calc Pharmacy 120.7 ml/min; Est GFR (African American) 117.5 ml/min; Est GFR (Non-African American) 101.4 ml/min; Potassium 3.5 mmol/L (3.5-5.1)
--- NOTE | 2020-08-09 10:55 | Critical Care Progress Note ---
Date of Service August 09, 2020 Assessment & Plan (1) Carotid stenosis: 54-year-old female status post right carotid endarterectomy. Continue usual post endarterectomy care per vascular surgery. I increased her dose of amlodipine to 5 mg daily. We are also giving her 10 mg of lisinopril. Nitroglycerin drip per vascular surgery. Pain management per vascular surgery surgery. I have discontinued intravenous fluids. ICU team will continue to follow while the patient is in the intensive care unit. (2) CVA (cerebral vascular accident): (3) Hypertension: Admission and Anticipated Discharge Date Admission Date: August 08, 2020 Subjective Patient seen and examined this morning. She is complaining of a headache. She is currently on a nitroglycerin drip. She is sitting up in a chair. No nausea or vomiting. Physical Exam Constitutional: WD/WN, vitals as above Respiratory: normal respiratory effort, lungs clear to auscultation Cardiovascular: RRR, no murmur, no edema Gastrointestinal (Abdomen): normal bowel sounds, soft, nontender, no hepatosplenomegaly Musculoskeletal: no cyanosis or clubbing, extremities motor strength 5/5 Skin: no rashes, warm and dry Neurologic: PERRL, EOMI, accommodation nl, no face palsy, no dysarthria Psychiatric: A+Ox3, euthymic affect Results & Data Results & Data ([facility]) Vital Signs (Past 12 Hours) Vital Signs Temp Pulse Resp BP Pulse Ox 08/09/20 08:00 86 08/09/20 06:00 73 16 136/65 98 08/09/20 05:30 73 21 97 08/09/20 05:00 71 17 133/60 97 08/09/20 04:30 76 19 96 08/09/20 04:00 98.2 F 71 18 135/71 95 08/09/20 03:30 81 16 98 08/09/20 03:00 73 19 147/69 H 96 08/09/20 02:30 69 18 96 08/09/20 02:00 70 21 140/73 96 08/09/20 01:30 68 17 96 08/09/20 01:00 81 23 134/75 95 08/09/20 00:30 75 17 97 08/09/20 00:00 98.1 F 78 19 119/65 95 08/08/20 23:30 68 19 95 08/08/20 23:00 72 15 125/66 97 Coding Level of Care Code 54325 Subseq Hosp Care Lvl 2 Diagnoses Carotid stenosis I65.29 CVA (cerebral vascular accident) I63.9 Hypertension I10
--- NOTE | 2020-08-09 11:18 | Surgery Progress Note ---
Date of Service August 09, 2020 Assessment & Plan (1) S/P carotid endarterectomy: She is doing well from her carotid endarterectomy other than her hypertension. (2) Hypertension: She was given a dose of labetalol. We will continue to wean her off the nitroglycerin. She will be transferred to the floor once her nitroglycerin is off. Consultation with medicine will be obtained her blood pressure control. Admission and Anticipated Discharge Date Admission Date: August 08, 2020 Subjective This is a 54-year-old female who underwent a right carotid enterectomy yesterday. She has no complaints today. She ate without difficulty and swallow without difficulty. She denies any neurological focal deficits. Her voice is baseline from preop. Physical Exam Constitutional: WD/WN, vitals as above Her neck incision is dry and clean. There is no drainage. There is a minimal edema of the incision site. No ecchymosis is noted. She has no neurological deficits. Her tongue is midline and her trachea is midline. She is hypertensive on nitro at this time. It is well controlled on nitroglycerin drip. Results & Data ([facility]) Vital Signs (Past 12 Hours) Vital Signs Temp Pulse Resp BP Pulse Ox 08/09/20 08:00 86 08/09/20 06:00 73 16 136/65 98 08/09/20 05:30 73 21 97 08/09/20 05:00 71 17 133/60 97 08/09/20 04:30 76 19 96 08/09/20 04:00 36.8 C 71 18 135/71 95 08/09/20 03:30 81 16 98 08/09/20 03:00 73 19 147/69 H 96 08/09/20 02:30 69 18 96 08/09/20 02:00 70 21 140/73 96 08/09/20 01:30 68 17 96 08/09/20 01:00 81 23 134/75 95 08/09/20 00:30 75 17 97 08/09/20 00:00 36.7 C 78 19 119/65 95 08/08/20 23:30 68 19 95 (1) Hypertension Hypertension type: unspecified Qualified Code(s): I10 - Essential (primary) hypertension
[2020-08-09] MEDS ORDERED: lisinopril 10 MG TAB PO ONE (11:30)
--- NOTE | 2020-08-09 18:17 | Consultation ---
Date of Consultation August 09, 2020 Assessment & Plan (1) S/P carotid endarterectomy: POD #1 from Right CEA secondary to severe carotid artery stenosis - Wound and lauren- per primary team - ASA per surgical team- already re-started - Plavix- restart per surgical team- (2) Hypertension: Uncontrolled- chronic - Prevent rapid lowering- no other evidence of organ dysfunction - Trend BP response while off NTG drip - with surgical procedure will keep <185- Hydralazine 5-10mg IV overnight - Will keep the Amlodipine 5mg daily - Continue Lisinopril 10mg daily- expect a few days for this to take effect - EF in June- 60-65% borderline LVH Will need a PCP for follow up- Case management consult placed for assistance. (3) CVA (cerebral vascular accident): CVA in June 2020- findings below CT head: shows no hemorrhage, questionable hypodensity in the left parietal lobe - CTA head/neck: shows moderate to severe stenosis of the right ICA just proximal to the bifurcation, hypoplastic right vertebral artery, mild diffuse extra and intracranial atherosclerosis - MRI brain: shows a subacute infarct in the right centrum semiovale, chronic infarct in the right frontal lobe and left parietal lobe with moderate to severe SVID noted - Hyper Coag workup negative - Continue Atorvastatin 40 mg - ASA restarted postoperatively - Plavix interrupted for surgical CEA (4) Tobacco abuse: She feels like she is doing OK with the transdermal patch (5) DVT prophylaxis: SCD's, ambulation, asa, Supervising Physician Co-Signing Physician Notes Attending Attestation - Pt seen/examined, chart reviewed, care plan d/w AYDEN Nichole. I agree w/ the cullen components of his documentation. 54yo female - recent CVA on right in June 2020; discovered to have severe right- sided carotid artery stenosis at that time. Underwent right CEA 08/08/20. Post-op managed in ICU for BP control via drip. We are consulted for ongoing BP assistance. Of note - now on oral lisinopril and amlodipine. Lisinopril is new; amlodipine dose increased from 2.5mg --> 5mg this admission. During my visit was sitting in chair; denied cp, dyspnea. PMH/PSH/allergies/meds/sochx/famhx - reviewed VSS but BPs high gen - NAD, pleasant neck - right-sided CEA incision c/d/i; mild swelling and ecchymoses as expected heart - RRR, s1 s2 lungs - CTA b/l abd - soft NT ext - no edema labs from this admission reviewed and stable Hb 11.2 - mild drop from pre-op A/P: 1. MALENA - s/p right-sided CEA, POD #1 and doing well from surgical standpoint. 2. HTN - agree w/ addition of low-dose ALFREDO and mild increase in CCB. Would not change or add additional agents at this time. Would simply monitor today/tonight. Could make additional adjustments later in stay if needed. 3. hyperlipidemia - cont statin. 4. recent CVA - cont asa for secondary prevention. 5. tobacco dependence - desperately needs to quit smoking. Nicoderm patch. 6. acute blood loss anemia - mild, about 2 gm drop; rx not needed. Trend. no evidence of bleeding from surgical site. Hi Diallo MD History of Present Illness Requesting Physician: Dr. Jean Dutta Reason for Consultation: Medication Management- BP control Attending Physician: Jean Dutta MD History of Present Illness 54 YOF with past medical history of: Current smoker- down to 1ppd, CVA diagnosed in June. She was started on Amlodipine 2.5 mg PO daily at that time and was to follow up with her PCP for BP management. She has not found a PCP at this time. She is admitted now as she is POD #1 following right CEA by Dr. Dutta. Postoperatively she was in the ICU on NTG drip for her BP control, she was weaned off the drip today as well as having her Amlodipine increased to 5mg PO and started on Lisinopril 10mg PO today. Patient is unsure of what her normal blood pressure is. Hypertensive on the floor 180-190. Will continue her amlodipine as well as her lisinopril. However the Lisinopril will likely take a few days to take effect. Goal for tonight will be <185. Allergies Allergy/AdvReac Type Severity Reaction Status Date / Time No Known Allergies Allergy Verified 08/08/20 10:09 Home Medications Medication Instructions Recorded Confirmed Type aspirin 81 mg PO QAM #30 tab 07/20/20 08/08/20 Rx atorvastatin 40 mg PO QAM #30 tab 07/20/20 08/08/20 Rx nicotine [Nicoderm CQ] 21 mg TRANSDERMAL QPM 07/25/20 08/08/20 History amlodipine [Norvasc] 5 mg PO QAM #30 tab 08/10/20 Rx lisinopril 10 mg PO QAM #30 tab 08/10/20 Rx oxycodone-acetaminophen [Percocet] 1 - 2 tab PO Q4H PRN #10 tab 08/10/20 Rx Patient History Medical History (Updated 08/14/20 @ 09:58 by Hi Diallo) Carotid stenosis High cholesterol History of stroke 06/2020 Hypertension Tobacco abuse Surgical History (Updated 08/14/20 @ 09:58 by Hi Diallo) S/P carotid endarterectomy Right; Dr Fuentes Dutta; 07/2020 Family History Father Family history of diabetes mellitus Family history of colonic polyps Mother Family history of diabetes mellitus Social History Smoking Status: Current every day smoker Cigarettes Per Day: TRYING TO QUIT / CURRENT PATCH/ TWO CIGARETTES OVER THE LAST WEEK/ADVISED; Second Hand Exposure: Yes; Hx Alcohol Use: No Hx Substance Use: No Preferred Language: Indonesian Communication Ability: Effective Head Of Academic Technology Required: No Beliefs That Will Affect Care: None marital status: Life Partner Current Living Situation: Spouse How many Children do You have: 3 Feels Safe at Home: Yes Assistive Devices: None Review of Systems Review of Systems: REVIEW OF SYSTEMS: Constitutional: No fever, sweats or chills Eyes: No diplopia, no worsening or blurred vision ENT: normal hearing, no trouble swallowing Respiratory: (+) cough- current smoker, No sputum, dyspnea at rest or on exertion Cardiovascular: No chest pain, tightness or palpitations Abdomen: No pain, nausea, vomiting, diarrhea or constipation Musculoskeletal: No joint pain, calf pain, swelling Neurologic: No weakness, numbness/tingling, or balance problems Psychiatric: No anxiety or depression Skin:(+) redness and irritation from surgical dressing removal Physical Exam Physical Exam: PHYSICAL EXAM: General: awake, alert, no apparent distress Head: Normocephalic, atraumatic ENT: PERRL, EOMI, no pharyngeal exudate, mucous membranes moist Neuro: AAO x 3, speech clear and appropriate, no facial droop, smile equal, tongue midline, no difficulty swallowing, strength intact bilaterally 5/5, sensation intact and equal all extremities and dermatomes, no pronator drift Chest: equal rise and fall of the chest, no accessory muscle use, no heaves or thrills, clear to auscultation, on room air, Cardiac: Regular rate and rhythm, S1S2, skin warm dry, cap refill <3 seconds, peripheral pulses +2 no JVD, no murmur, no edema - Surgical incision intact with lauren, no hematoma. Erythema and burning- skin irritation from dressing removal. GI: NABS x 4 quadrants, soft, nontender to palpation, no rebound, guarding or tenderness, positive flatus : Spontaneously voiding, no pain, no CVA tenderness, Extremities: Normal inspection, no peripheral edema or erythema, calfs nontender to palpation Psych: Normal mood and affect Skin: no rash or erythema Results & Data ([facility]) Vital Signs (Past 12 Hours) Vital Signs Temp Pulse Pulse Resp BP BP Pulse Ox 08/09/20 15:18 36.8 C 82 16 190/89 H 96 08/09/20 14:26 37.5 C 88 16 189/86 H 93 08/09/20 14:00 85 24 08/09/20 13:30 94 H 20 93 08/09/20 13:18 87 20 174/89 H 94 08/09/20 13:03 90 19 147/71 H 98 08/09/20 13:00 86 22 91 08/09/20 12:30 87 20 91 08/09/20 12:18 93 H 36 H 168/80 H 92 08/09/20 12:16 87 14 175/95 H 92 08/09/20 12:00 91 H 18 93 08/09/20 11:30 85 16 95 08/09/20 11:19 90 22 190/99 H 93 08/09/20 11:00 80 21 91 08/09/20 10:30 92 H 18 93 08/09/20 10:18 86 20 134/62 91 08/09/20 10:00 86 19 91 08/09/20 09:40 87 19 181/94 H 97 08/09/20 09:30 81 17 08/09/20 09:18 81 18 126/72 93 08/09/20 09:00 80 19 92 08/09/20 08:30 91 H 08/09/20 08:18 93 H 152/79 H 08/09/20 08:00 91 H 12 91 08/09/20 07:30 87 25 H 93 08/09/20 07:19 80 21 148/70 H 99 08/09/20 07:00 70 20 97 08/09/20 06:30 74 17 96 08/09/20 06:18 77 19 156/68 H 97 Laboratory Results Abnormal lab results 08/08/20 08/09/20 08/09/20 Range/Units 21:41 04:20 06:06 RBC 3.77 L (4.2-5.4) M/uL Hgb 11.2 L (12.0-16.0) g/dL Hct 33.9 L (37-47) % MPV 11.2 H (7.4-10.4) fL Chloride (98-107) mmol/L Glucose (70-99) mg/dl POC Glucose 131 H 141 H (70-99) mg/dl 08/09/20 Range/Units 10:08 RBC (4.2-5.4) M/uL Hgb (12.0-16.0) g/dL Hct (37-47) % MPV (7.4-10.4) fL Chloride 110 H (98-107) mmol/L Glucose 171 H (70-99) mg/dl POC Glucose (70-99) mg/dl Medications Administered Acetaminophen (Acetaminophen 325 Mg Tab) 650 mg PO Q4H PRN PRN Reason: Pain Stop: 09/07/20 16:25 Last Admin: 08/09/20 10:43 Dose: 650 mg Documented by: [id number] Admin: 08/09/20 04:26 Dose: 650 mg Documented by: [id number] Admin: 08/09/20 00:01 Dose: 650 mg Documented by: [id number] Admin: 08/08/20 16:32 Dose: 650 mg Documented by: [id number] Aspirin (Aspirin 81 Mg Ectab) [facility] [place] Stop: 09/08/20 08:59 Last Admin: 08/09/20 08:07 Dose: 81 mg Documented by: [id number] Atorvastatin Calcium (Atorvastatin 40 Mg Tab) 40 mg PO QAM [facility] Stop: 09/08/20 08:59 Last Admin: 08/09/20 08:08 Dose: 40 mg Documented by: [id number] Miscellaneous (Remove Nicoderm Patch) 1 ea N/A DAILY@0859 [facility] Stop: 09/07/20 20:59 Last Admin: 08/09/20 08:08 Dose: 1 ea Documented by: [id number] Admin: 08/08/20 20:58 Dose: 1 ea Documented by: [id number] Nicotine (Nicotine 21 Mg/24 Hr Tdsy) 21 mg TD QPM [facility] Stop: 09/07/20 20:59 Last Admin: 08/08/20 20:58 Dose: 21 mg Documented by: [id number] Oxycodone/Acetaminophen (Oxycodone/Acetaminophen 5mg/325mg Tab) 1 - 2 tab PO Q4H PRN PRN Reason: Moderate Pain Stop: 08/22/20 16:11 Last Admin: 08/08/20 21:37 Dose: 1 tab Documented by: [id number] Admin: 08/08/20 17:47 Dose: 2 tab Documented by: [id number] Discontinued Medications Amlodipine Besylate (Amlodipine Besylate 5 Mg Tab) 2.5 mg [facility] [place] Stop: 09/08/20 08:59 Last Admin: 08/09/20 08:08 Dose: 2.5 mg Documented by: [id number] Amlodipine Besylate (Amlodipine Besylate 5 Mg Tab) 2.[address] [facility] Stop: 08/09/20 10:15 Last Admin: 08/09/20 10:44 Dose: 2.5 mg Documented by: [id number] Bupivacaine HCl/Epinephrine Bitart (Bupivacaine/Epinephrine 0.5% Mpf 1:200,000 30 Ml Vial) Confirm Administered Dose 30 ml .ROUTE .STK-MED ONE Stop: 08/08/20 11:15 Last Admin: 08/08/20 13:58 Dose: 20 ml Documented by: [id number] Cefazolin Sodium (Cefazolin 250 Mg/Ml 1 Gm Vial) Confirm Administered Dose 1,000 mg .ROUTE .STK-MED ONE Stop: 08/08/20 11:16 Last Admin: 08/08/20 13:59 Dose: 1,000 mg Documented by: [id number] Gelatin (Gelatin Sponge Sz 100) Confirm Administered Dose 1 ea .ROUTE .STK-MED ONE Stop: 08/08/20 11:16 Last Admin: 08/08/20 12:50 Dose: 1 ea Documented by: [id number] Heparin Sodium (Porcine) (Heparin (Porcine) 1000 Unit/Ml 10 Ml (Bill Distributor Use Only)) Confirm Administered Dose 10,000 units .ROUTE .STK-MED ONE Stop: 08/08/20 11:15 Last Admin: 08/08/20 13:59 Dose: 500 units Documented by: [id number] Cefazolin Sodium (Ancef 2000mg) 2,000 mg in 15 mls @ 3.75 mls/min IV PREOP TIMO; Protocol Stop: 08/09/20 05:59 Last Admin: 08/08/20 11:36 Dose: 3.75 mls/min Documented by: [id number] Lactated Ringer's (Lr) 1,000 mls @ 80 mls/hr IV .[id number] TIMO Stop: 09/07/20 05:59 Last Infusion: 08/08/20 11:36 Dose: 80 mls/hr Documented by: [id number] Admin: 08/08/20 10:16 Dose: 80 mls/hr Documented by: [id number] Cefazolin Sodium (Ancef 2000mg) 2,000 mg in 15 mls @ 3.75 mls/min IV Q8 TIMO; Protocol Stop: 08/09/20 06:03 Last Admin: 08/09/20 06:03 Dose: 3.75 mls/min Documented by: [id number] Admin: 08/08/20 20:57 Dose: 3.75 mls/min Documented by: [id number] Lactated Ringer's (Lr) 1,000 mls @ 125 mls/hr IV .Q8H TIMO Stop: 09/07/20 16:11 Last Infusion: 08/09/20 12:13 Dose: 0 mls/hr Documented by: [id number] Admin: 08/09/20 04:27 Dose: 125 mls/hr Documented by: [id number] Infusion: 08/09/20 04:27 Dose: 125 mls/hr Documented by: [id number] Admin: 08/08/20 20:56 Dose: 125 mls/hr Documented by: [id number] Admin: 08/08/20 18:06 Dose: Not Given Documented by: [id number] Nitroglycerin/Dextrose (Nitroglycerin/D5w 100 Mcg/Ml) 250 mls @ 0 mls/hr IV .Q0M TIMO; Protocol Stop: 09/07/20 17:14 Last Titration: 08/09/20 14:43 Dose: 0 mcg/min, 0 mls/hr Documented by: [id number] Titration: 08/09/20 12:13 Dose: 0 mcg/min, 0 mls/hr Documented by: [id number] Titration: 08/09/20 07:04 Dose: 5 mcg/min, 3 mls/hr Documented by: [id number] Cosigned by: [id number] Titration: 08/08/20 20:58 Dose: 5 mcg/min, 3 mls/hr Documented by: [id number] Titration: 08/08/20 18:39 Dose: 10 mcg/min, 6 mls/hr Documented by: [id number] Titration: 08/08/20 18:00 Dose: 10 mcg/min, 6 mls/hr Documented by: [id number] Admin: 08/08/20 17:14 Dose: 5 mcg/min, 3 mls/hr Documented by: [id number] Cosigned by: [id number] Labetalol HCl (Labetalol Hcl Iv 5 Mg/Ml 20ml) 5 mg IV NOW STA Stop: 08/09/20 10:16 Last Admin: 08/09/20 10:44 Dose: 5 mg Documented by: [id number] Cosigned by: [id number] Lidocaine HCl (Lidocaine Hcl 1% 20 Ml Vial) Confirm Administered Dose 20 ml .ROUTE .STK-MED ONE Stop: 08/08/20 11:16 Last Admin: 08/08/20 14:00 Dose: 1 ml Documented by: [id number] Lisinopril (Lisinopril 10 Mg Tab) 10 mg PO NOW ONE Stop: 08/09/20 11:31 Last Admin: 08/09/20 11:38 Dose: 10 mg Documented by: [id number] Thrombin (Thrombin For Soln 63395 Unit Kit) Confirm Administered Dose 20,000 units .ROUTE .STK-MED ONE Stop: 08/08/20 11:16 Last Admin: 08/08/20 14:00 Dose: 5,000 units Documented by: [id number] ECG Additional Comments: None current this admission PG Care Time/CCT Total # of Minutes Spent Total Time Spent with Patient: Total time spent is greater than 50% in coordination of care (as documented) at patient's floor/unit and/or counseling patient: Coding Level of Care Code 91979 Inpt Consult Level 3 Diagnoses S/P carotid endarterectomy Z98.890 Hypertension I10 Hypertension type: essential hypertension CVA (cerebral vascular accident) I63.9 CVA mechanism: unspecified Tobacco abuse Z72.0 DVT prophylaxis Z29.9 (1) Hypertension Hypertension type: essential hypertension Qualified Code(s): I10 - Essential (primary) hypertension (2) CVA (cerebral vascular accident) CVA mechanism: unspecified Qualified Code(s): I63.9 - Cerebral infarction, unspecified
[2020-08-09] MEDS ORDERED: hydrALAZINE HCL 20 MG/ML VIAL IV PRN (18:30)
[2020-08-09] MEDS: NICOTINE 21 MG/24 HR TDSY TD SCH (19:27)
[2020-08-10] MEDS: ATORVASTATIN 40 MG TAB PO SCH (07:53)
[2020-08-10] MEDS: ASPIRIN 81 MG ECTAB PO SCH (07:53)
[2020-08-10 08:38] LABS: Hematocrit (blood only) 38.6 % (37-47); Mean Corpuscular Hemoglobin 30.4 pg (25-34); Mean Corpuscular Hgb Conc 33.7 g/dL (32-36); Mean Corpuscular Volume 90.2 fL (80-100); Mean Platelet Volume 11.4 fL (7.4-10.4); Platelet Count 157 K/uL (130-400); RDW Coefficient of Variation 13.3 % (11.5-14.5); RDW Standard Deviation 43.6 fL (36.4-46.3); Red Blood Count 4.28 M/uL (4.2-5.4); White Blood Count 7.38 K/uL (4.8-10.8)
[2020-08-10 08:59] LABS: BUN Creatinine Ratio 14.9 (10-20); Calcium 9.6 mg/dl (8.5-10.1); Creatinine Clr Calc Pharmacy 124.5 ml/min; Est GFR (African American) 118.7 ml/min; Est GFR (Non-African American) 102.4 ml/min; Potassium 3.6 mmol/L (3.5-5.1)
[2020-08-10] MEDS ORDERED: lisinopril 10 MG TAB PO SCH (09:00)
[2020-08-10] MEDS ORDERED: amLODIPine BESYLATE 5 MG TAB PO SCH (09:00)
--- NOTE | 2020-08-10 10:43 | Hospitalist Progress Note ---
Date of Service August 10, 2020 Assessment & Plan (1) S/P carotid endarterectomy: POD #2 from Right CEA secondary to severe carotid artery stenosis - Wound and lauren- per primary team - ASA per surgical team- already re-started - Plavix- restart per surgical team BPs better controlled, 156/83 this morning prior to administration of lisinopril 10mg (given yesterday) and increased amlodipine to 5mg (2) Hypertension: Uncontrolled- chronic. Was on Nitro gtt post-operatively in ICU and once discontinued, sent to third floor for continued monitoring Was 190s/89 post-op when eval'd on third floor -- ordered hydralazine but never given Given dose of lisinopril 10mg and continuing at discharge -- may take some time for full effect Amlodipine 2.5mg given last admission increased to 5mg daily and will continue at d/c BP currently 153/87 Discussed with patient to obtain BP cuff and continue to monitor at home and alert PCP/Vascular if continued to be elevated while awaiting PCP and while lisinopril taking effect Will send rx with refills as she establishes care with PCP. CM to provide information for CVIM EF in June- 60-65% borderline LVH (3) CVA (cerebral vascular accident): CVA in June 2020- findings below CT head: shows no hemorrhage, questionable hypodensity in the left parietal lobe - CTA head/neck: shows moderate to severe stenosis of the right ICA just proximal to the bifurcation, hypoplastic right vertebral artery, mild diffuse extra and intracranial atherosclerosis - MRI brain: shows a subacute infarct in the right centrum semiovale, chronic infarct in the right frontal lobe and left parietal lobe with moderate to severe SVID noted - Hyper Coag workup negative - Continue Atorvastatin 40 mg - ASA restarted postoperatively - Plavix interrupted for surgical CEA but was only to be on for 21 days which would have been until yesterday -- per vascular at d/c (4) Tobacco abuse: She feels like she is doing OK with the transdermal patch -- had removed this morning and no new one ordered -- placed order for one for this morning and patient to continue to hopefully quit. She has made significant reductions and utilizing patches at home Discussed elevated risks due to HTN and smoking as source for her recent CVA (5) DVT prophylaxis: SCD's, ambulation, asa Dispo: home likely later today per primary service Hospitalist service will follow along if remains in the hospital, but stable for d/c if ok w primary service. Please call with any questions/concerns Admission and Anticipated Discharge Date Admission Date: August 08, 2020 Supervising Physician Co-Signing Physician Notes MAC Supervision Note: I did not personally see or examine the patient today, but I verified all cullen points of MAC Singleton's assessment and plan with the following exceptions/additions: None Subjective Patient evaluated this morning. Feeling great, pain controlled. Headache yesterday, since resolved. Eating/drinking no issue. No shortness of breath or difficulty swallowing. Some itchiness from around where dressing was with some erythema. She needs new PCP -- will have CM provide information for CVIM. BPs better today but still little elevated but better than post-operatively. She does not have a BP cuff at home but discussed that she should obtain one and monitor pressures at home and if elevated to call/return to ER if prior to PCP set up. She had her amlodipine increased and got her lisinopril this morning, no issues. Only on ASA now, completed her plavix course. Awaiting to see Dr Dutta but hopeful for d/c today. No fever, chills, chest pain, shortness of breath, nausea, vomiting, dysuria or other complaint at this time. Review of Systems Review of Systems: All systems reviewed & are unremarkable except as noted in HPI & below Physical Exam Physical Exam: General: awake, alert, no apparent distress Head: Normocephalic, atraumatic ENT: PERRL, EOMI, no pharyngeal exudate, mucous membranes moist R CEA with lauren intact, surrounding erythema from tape to anterior chest, no drainage Neuro: AAO x 3, speech clear and appropriate, no facial droop, smile equal, tongue midline, no difficulty swallowing, strength intact bilaterally 5/5, sensation intact and equal all extremities and dermatomes, no pronator drift Chest: CTAB, no w/c/r, on RA Cardiac: RRR, S1/S2. Cap refill <3 seconds. No JVD, edema GI: NABS x 4 quadrants, soft, nontender to palpation, no rebound, guarding or tenderness, positive flatus : Spontaneously voiding, no pain, no CVA tenderness, Extremities: Normal inspection, no peripheral edema or erythema, calfs nontender to palpation Psych: Normal mood and affect Skin: no rash or erythema Results & Data Results & Data ([facility]) Vital Signs (Past 12 Hours) Vital Signs Temp Pulse Resp BP BP Pulse Ox 08/10/20 06:45 36.9 C 92 H 18 156/83 H 91 08/09/20 22:56 37.3 C 83 16 156/77 H 95 PG Care Time/CCT Total # of Minutes Spent Total Time Spent with Patient: Total time spent is greater than 50% in coordination of care (as documented) at patient's floor/unit and/or counseling patient: Coding Level of Care Code 10152 Subseq Hosp Care Lvl 3 Diagnoses S/P carotid endarterectomy Z98.890 Hypertension I10 Hypertension type: essential hypertension CVA (cerebral vascular accident) I63.9 CVA mechanism: unspecified Tobacco abuse Z72.0 DVT prophylaxis Z29.9 (1) Hypertension Hypertension type: essential hypertension Qualified Code(s): I10 - Essential (primary) hypertension (2) CVA (cerebral vascular accident) CVA mechanism: unspecified Qualified Code(s): I63.9 - Cerebral infarction, unspecified
[2020-08-10] MEDS ORDERED: NICOTINE 21 MG/24 HR TDSY TD SCH (12:00)
--- NOTE | 2020-08-10 14:50 | Surgery Progress Note ---
Date of Service August 10, 2020 Assessment & Plan (1) S/P carotid endarterectomy: She is doing well POD #2 after R CEA. Will d/c home today with medication changes made for her HTN by medicine. Will follow up in office in 1 week for staple removal. (2) Hypertension: Medical consultation made changes to HTN meds, with significant improvement. New Rx sent to pharmacy and CM to assist in making appt with PCP. D/C home today. Admission and Anticipated Discharge Date Admission Date: August 08, 2020 Subjective 54 yo f POD #2 after R CEA, seen in f/u today. Pt with significant post op HTN and hospitalist service consulted for management, medication changes made. Improvement in BP noted. Pt admits some discomfort in R neck and puruitis. Denies SHAH, new unilateral weakness numbness or tinging, amaurosis, difficulty swallowing or speaking. No new complaints. Review of Systems Review of Systems: All systems reviewed & are unremarkable except as noted in HPI & below Physical Exam Constitutional: WD/WN, vitals as above healthy appearing, cooperative and comfortable Neck: normal visual inspection (R neck incision C/D/I with lauren. Minimal edema noed. No drainage) Respiratory: normal respiratory effort, lungs clear to auscultation Auscultation: + diminished lung sounds Cardiovascular: RRR, no murmur, no edema Gastrointestinal (Abdomen): normal bowel sounds, soft, nontender, no hepatosplenomegaly Neurologic: moves all extremities and awake; no focal motor deficits and not confused Psychiatric: A+Ox3, euthymic affect Results & Data ([facility]) Vital Signs (Past 12 Hours) Vital Signs Temp Pulse Pulse Resp BP BP Pulse Ox 08/10/20 11:12 88 153/87 H 08/10/20 06:45 36.9 C 92 H 18 156/83 H 91 (1) Hypertension Hypertension type: unspecified Qualified Code(s): I10 - Essential (primary) hypertension
--- NOTE | 2020-08-11 10:25 | Discharge Summary ---
Date of Service August 11, 2020 Admission HPI Per Admitting Provider July 19, 2020 Assessment & Plan (1) Carotid stenosis: Pt with acute/subacute R hemispheric CVA on MRI and approx 80% stenosis of R ICA. Presented with L arm/hand/thigh numbness and mild dysarthria. Her sx are significantly improved, but not completely resolved. Will have Dr Dutta review CTA neck to determine whether pt would benefit from R CEA. Agree with initiation of plavix/ASA in meantime. Patient was seen, examined, and chart reviewed. Agree with exam and treatment plan of the Vascular PA. History of Present Illness Reason for Consultation: R ICA stenosis with CVA Attending Physician: Hi Zepeda MD History of Present Illness 54 yo f without significant medical hx, admitted d/t L arm and leg numbness and mild dysarthria that began upon waking yesterday, seen in consultation today for R ICA stenosis noted on CTA neck. Pt states no prior similar sx, but noted L hand numbness/tingling upon waking yesterday, which then extended more proximally to her forearm and upper arm as the morning went on. Also noted L thigh/knee numbness. When she began to feel that her speech was not normal, she called her and came to [facility]. Pt states her sx are improved today, but not completely resolved. Pt was hypertensive on arrival. Denies SHAH, amaurosis, chest pain, SOB, facial droop, dysphagia, abd pain, N/V, palpitations, rest pain, claudication, other complaints. MRI brain demonstrates R parietal CVA. CTA neck demonstrates approx 80% stenosis of R ICA. Allergies Allergy/AdvReac Type Severity Reaction Status Date / Time No Known Allergies Allergy Unverified 07/18/20 16:33 Home Medications Medication Instructions Recorded Confirmed Type No Known Home Medications 07/18/20 07/18/20 History amlodipine [Norvasc] 2.5 mg PO QAM #30 tab 07/20/20 Rx aspirin 81 mg PO QAM #30 tab 07/20/20 Rx atorvastatin 40 mg PO QAM #30 tab 07/20/20 Rx clopidogrel 75 mg PO DAILY 20 Days #20 tab 07/20/20 Rx nicotine [Nicoderm CQ] 21 mg TRANSDERMAL QAM #28 ea 07/20/20 Rx Patient History Medical History Hypertension Social History Smoking Status: Current every day smoker Hx Alcohol Use: No Hx Substance Use: No Preferred Language: Marshallese Communication Ability: Effective Sociology Instructor Required: No Beliefs That Will Affect Care: None marital status: Life Partner Current Living Situation: Spouse How many Children do You have: 3 Feels Safe at Home: Yes Assistive Devices: None Review of Systems Review of Systems: All systems reviewed & are unremarkable except as noted in HPI & below Physical Exam Constitutional: WD/WN, vitals as above + obese, healthy appearing, cooperative and comfortable; not in distress Eyes: PERRL, conjunctivae normal, anicteric sclerae ENMT: Ears: no hearing impairment Neck: trachea midline Respiratory: normal respiratory effort, lungs clear to auscultation Auscultation: + diminished lung sounds Cardiovascular: RRR, no murmur, no edema Gastrointestinal (Abdomen): normal bowel sounds, soft, nontender, no hepatosplenomegaly Musculoskeletal: no cyanosis or clubbing, extremities motor strength 5/5 Skin: no rashes, warm and dry Neurologic: moves all extremities and awake; no focal motor deficits, not confused and not obtunded Speech / Cognition: normal speech and normal cognition Psychiatric: A+Ox3, euthymic affect Results & Data ([facility]) Vital Signs (Past 12 Hours) Vital Signs Temp Pulse Pulse Resp BP BP Pulse Ox 07/19/20 11:25 36.7 C 86 19 171/83 H 96 07/19/20 09:51 96 H 18 173/88 H 92 07/19/20 08:46 82 07/19/20 08:14 36.6 C 87 19 213/99 H 94 07/19/20 04:07 37.3 C 78 20 160/81 H 96 Signed By:<Electronically signed by Gia Parra PA-C>07/25/20 0849<Electronically signed by Jean Dutta MD>07/25/20 0850 Created: 07/19/20 1247 The status of this report is Signed.Draft = Not yet reviewed or approved by Medical Physician.Signed = Reviewed and approved by Medical Physician. Admission Exam Per Admitting Provider Constitutional: WD/WN, vitals as above + obese, healthy appearing, cooperative and comfortable; not in distress Eyes: PERRL, conjunctivae normal, anicteric sclerae ENMT: Ears: no hearing impairment Neck: trachea midline Respiratory: normal respiratory effort, lungs clear to auscultation Auscultation: + diminished lung sounds Cardiovascular: RRR, no murmur, no edema Gastrointestinal (Abdomen): normal bowel sounds, soft, nontender, no hepatosplenomegaly Musculoskeletal: no cyanosis or clubbing, extremities motor strength 5/5 Skin: no rashes, warm and dry Neurologic: moves all extremities and awake; no focal motor deficits, not confused and not obtunded Speech / Cognition: normal speech and normal cognition Psychiatric: A+Ox3, euthymic affect Principal Diagnosis 1. s/p R CEA 2. R ICA stenosis 3. Hypertension Discharge Exam Constitutional WD/WN, vitals as above healthy appearing, cooperative and comfortable Neck normal visual inspection (R neck incision C/D/I with lauren. Minimal edema noed. No drainage) Respiratory normal respiratory effort, lungs clear to auscultation Auscultation: + diminished lung sounds Cardiovascular RRR, no murmur, no edema Gastrointestinal (Abdomen) normal bowel sounds, soft, nontender, no hepatosplenomegaly Neurologic moves all extremities and awake; no focal motor deficits and not confused Psychiatric A+Ox3, euthymic affect Discharge Data Allergies Allergy/AdvReac Type Severity Reaction Status Date / Time No Known Allergies Allergy Verified 08/08/20 10:09 Consultations 08/08/20 11:30 Consult Cell Technician Routine 08/09/20 14:19 Consult Hospitalist Routine Procedures Performed Operation Date: 08/08/20 10:50 Actual Procedures p Right Carotid Endarterectomy with Bovine Patch Graft, Right Neck Exploration for Bleeding(Right) - Jean Dutta MD Hospital Course (1) S/P carotid endarterectomy: She is doing well POD #2 after R CEA. Will d/c home today with medication changes made for her HTN by medicine. Will follow up in office in 1 week for staple removal. (2) Hypertension: Medical consultation made changes to HTN meds, with significant improvement. New Rx sent to pharmacy and CM to assist in making appt with PCP. D/C home today. Total Time Total Time Spent Total Time Spent (In Minutes): 0 Discharge Plan Discharge Items Patient Disposition: Home - Self-Care Reason For Visit: Right Carotid Artery Stenosis Discharge Diagnosis: 1. Post Right Carotid Endarterectomy 2. Right Internal Carotid Artery Stenosis with CVA 3. Hypertension Activity: Per Instructions section Non-emergency contact: Primary Care Provider and Surgeon Call non-emergency contact if: you have any medication questions, your pain is not controlled, your pain is unusual for you, your pain is concerning for you, you have a fever, your wound has increased redness, your wound has increased drainage and your wound pain has increased Follow-up/Referrals: [facility],Medicine [Non-Staff] - (Please follow vup they can assist with medical care vwith individuals without insurance ) Jean Dutta MD [Physician] - (Follow up in office in 1 week for staple removal. Call [phone] for appt.) PCPMARK [Primary Care Provider] - Diet: Heart Healthy Addtl Attending Provider Instructions: SPECIAL CARE INSTRUCTIONS: Medications: * Continue to take Aspirin as directed. Incision Care: * You may shower, but do not rub incision. You may let the warm soapy water run over it. Be sure to dry the incision well after bathing. * Do not shave directly over the incision until it is healed. * DO NOT IMMERSE THE INCISION IN A TUB/POOL/etc. UNTIL HEALED. Restrictions: * Do not drive for at least one week or if you are still taking any narcotic pain medication. * Do not lift anything heavier than a gallon of milk for one week after going home. Possible Complications: * Numbness - It is normal to have some numbness around the incision. Numbness can extend beyond the incision to areas of the neck, ear and face. The numbness is due to bruising of nerves during the surgery and will gradually improve over a period of months. * Hoarseness/Difficulty Speaking and Swallowing - The bruising of nerves in the neck can also cause a hoarse voice, difficulty speaking or swallowing. This may improve over time, HOWEVER, if it continues for more than a few days please contact our office ([phone]). * Excessive Swelling - There will be some swelling immediately after surgery which usually resolves within one week. If you notice that the swelling is getting worse, notify your surgeon ([phone]). * Drainage/Bleeding - If there is any drainage or bleeding, it should be a very small amount (less than a teaspoon per day). If you have excessive bleeding or drainage from the incision, call your surgeon ([phone]) right away. ACTIVATION OF EMERGENCY MEDICAL SYSTEM: Call 911, immediately, if you experience any of the following: Warning Signs and Symptoms of Stroke: * Sudden numbness or weakness of the face, arm or leg, especially on one side of the body * Sudden confusion, trouble speaking or understanding * Sudden trouble seeing in one or both eyes * Sudden trouble walking, dizziness, loss of balance or coordination * Sudden severe headache with no cause Do not delay calling 911 if you experience any warning signs or symptoms of a stroke. Delay in seeking medical attention may affect what treatments can be given to you. Risk Factors for Stroke: You can reduce your chances of stroke by working with your medical provider to adopt a healthy lifestyle. Some specific ways to lower your chance of stroke are: * If you are a smoker, now is the time to stop smoking cigarettes * If you are diabetic, improve the control of your blood sugars * Avoid excessive amounts of alcohol * Control high blood pressure * Lose weight if you are overweight * Be sure to lead an active lifestyle * Eat a healthy diet low in salt, cholesterol and fat You should know about other risk factors for stroke that you are unable to control. These include: * Age 55 years or older * Male gender * Certain racial groups: , or / * Family History of Stroke, Mini stroke or Heart Attack * Sickle Cell Disease You will be receiving a call from the Vascular Surgery Nurse after you are discharged. FOLLOW UP VISIT: It is important for you to keep your follow up appointments with your medical provider. Keep any scheduled doctor appointments. Pending Studies at Discharge: No Stand-Alone Forms: My [facility] [employer], Smoking Cessation Medications and DC Order Prescriptions: New amlodipine [Norvasc] 5 mg Tablet 5 mg PO QAM Qty: 30 RF: 3 lisinopril 10 mg Tablet 10 mg PO QAM Qty: 30 RF: 3 oxycodone-acetaminophen [Percocet] 5-325 mg Tablet 1 - 2 tab PO Q4H PRN (Reason: pain) Qty: 10 RF: 0 Continued atorvastatin 40 mg Tablet 40 mg PO QAM Qty: 30 RF: 0 aspirin 81 mg Tablet,Delayed Release (Dr/Ec) 81 mg PO QAM Qty: 30 RF: 0 nicotine [Nicoderm CQ] 21 mg/24 hr patch 24 hour 21 mg transdermal QPM RF: 0 Discontinued amlodipine [Norvasc] 5 mg Tablet 2.5 mg PO QAM Qty: 30 RF: 0 clopidogrel 75 mg tablet 75 mg PO QAM RF: 0 Discharge Orders: Discharge Order (Routine); Ordered 08/10/20 Ordered By: Gia Parra Admission Data Admit Date/Time: 08/08/20 11:30 Attending Provider: Jean Dutta Admit Provider: Jean Dutta Primary Care Provider: PCP,NO Other Providers: Sean Ye ; Rony Ramirez ; David Ca ; Edwin Summers ; Addy Henriquez ; Rocael Rivas ; Daniel Rodriguez ; Ysabel Singleton ; Hi Diallo ; Ez Falk ; Stevenson Zamora ; Gagandeep Trejo ; Rodger Gamino ; Rhona Moreno ; Katelyn Parrish ; Armando Maynard ; Doreen Cota ; Lena Cortez ; Favian Kaur ; Wood Nichole ; Ernie Pina ; Henry Feldman ; Noel Ventura ; Charles Strickland ; Hi Zepeda ; Sean Noe ; Suma Tee ; David Osborne ; Piter Davis. Other Interventions: Discharge Summary Assessment (RN) Last Done: 08/10/20 15:00
== END 2020-08-10 16:06 | disposition home or self-care (01) | DRG 27 ==
LOC: ASU 09:25 → 1E 11:30 → 3N 08-09 11:18 → 3W 08-10 01:37